=== PATIENT | female | born 1970 | race American Indian/Alaskan Native ===

== ENCOUNTER 2016-11-22 12:50 | Emergency (ER) | payer BC ==
--- NOTE | 2016-11-22 15:15 | Emergency Department Report ---
Chief Complaint: Abdominal Pain Stated Complaint: VAGINAL IRRITATION/ITCHING Time Seen by Provider: 11/22/16 15:07 - HPI History of Present Illness: 46-year-old -[place] female comes in with complaint of lower abdominal pain and vaginal irritation 2-3 days. Denies any vaginal bleeding or vaginal discharge and no painful urination. She does admit to diarrhea she also reports that she has been out of her blood pressure medicine for 1 year. He reports the reason she is been out of her blood pressure medicine is that she has not been able to afford it even though she has health insurance. He admits to having real bad headaches she's not sure if his migraines or side effects from not being on blood pressure medication. Has a past medical history of hypertension diabetes and hyporthyroidism. Patient reports that she has not been on medication for quite a while approximately 1 year. Patient reports that last primary care provider she had she was not very pleased with his matters. She is also looking for another primary care provider - Exam Vital Signs: Vital Signs 11/22/16 14:01 Temperature 98.7 F Pulse Rate 82 Respiratory 18 Rate Blood Pressure 200/100 O2 Sat by Pulse 99 Oximetry Physical Exam: Patient's alert and or 23. Cardiovascular S1-S2 regular rate and rhythm respiratory clear to some bilateral abdomen soft. MSE screening note: Focused history and physical exam performed. Due to findings the following was ordered: Appropriate ordered for this patient. She'll be evaluated in the main ER for further evaluation ED Disposition for MSE Condition: Stable Instructions: Abdominal Pain (ED)
[2016-11-22 16:19] LABS: Hematocrit 45.4 % (30.3-42.9); Hemoglobin 14.3 gm/dl (10.1-14.3); Mean Corpuscular HGB Conc 32 % (30-34); Mean Corpuscular Volume 74 fl (79-97); Platelet Count 249 K/mm3 (140-440); Red Blood Count 6.17 M/mm3 (3.65-5.03); Red Cell Distribution Width 14.7 % (13.2-15.2); White Blood Count 4.1 K/mm3 (4.5-11.0)
[2016-11-22 16:37] LABS: Alanine Aminotransferase 16 units/L (7-56); Albumin 4.3 g/dL (3.9-5); Alkaline Phosphatase 200 units/L (35-129); Anion Gap 20 mmol/L; Bilirubin,Total 0.5 mg/dL (0.1-1.2); Blood Urea Nitrogen 8 mg/dL (7-17); Calcium 9.4 mg/dL (8.4-10.2); Carbon Dioxide 25 mmol/L (22-30); Chloride 96.1 mmol/L (98-107); Glucose 250 mg/dL (65-100); Potassium 4.4 mmol/L (3.6-5.0); Sodium 137 mmol/L (137-145); Total Protein 8.4 g/dL (6.3-8.2)
[2016-11-22 16:38] LABS: Mean Corpuscular Hemoglobin 23 pg (28-32)
[2016-11-22 16:48] LABS: Bilirubin,Urine NEG (Negative); Blood,Urine NEG (Negative); Ketones,Urine NEG (Negative); Leukocyte Esterase,Urine NEG (Negative); Nitrite,Urine NEG (Negative); Protein,Urine <15 mg/dL mg/dL (Negative); WBC,Urine < 1.0 /HPF (0.0-6.0)
--- NOTE | 2016-11-22 23:14 | Emergency Department Report ---
HPI - General Chief Complaint: Abdominal Pain Time Seen by Provider: 11/22/16 15:07 - HPI HPI: Patient is a 46-year-old female with a history of hyperthyroidism who presents to ED complaining of vaginal irritation 2-3 days. Patient states she did have some itching in her vaginal area for the past 3 days. Patient denies recent intercourse. Patient denies fever/chills/nausea/vomiting/abdominal pain, vaginal bleeding, discharge, dysuria or diarrhea. ED Past Medical Hx - Past Medical History Previous Medical History?: Yes Hx Hypertension: Yes Hx Diabetes: Yes Additional medical history: anemia. hyperthyroid - Surgical History Past Surgical History?: Yes Additional Surgical History: cyst removal from left side of neck - Social History Smoking Status: Never Smoker Substance Use Type: None - Medications Home Medications: Home Medications Medication Instructions Recorded Confirmed Last Taken Type Metoprolol [Lopressor TAB] 50 mg PO BID #40 tablet 11/22/16 Unknown Rx metFORMIN [Glucophage] 500 mg PO BID #40 tablet 11/22/16 Unknown Rx metroNIDAZOLE [Flagyl] 500 mg PO Q12HR #14 tab 11/23/16 Unknown Rx ED Review of Systems ROS: Stated complaint: VAGINAL IRRITATION/ITCHING Other details as noted in HPI Constitutional: denies: chills, fever Eyes: denies: eye pain, eye discharge, vision change ENT: denies: ear pain, throat pain Respiratory: denies: cough, shortness of breath, SOB with exertion, SOB at rest , wheezing Cardiovascular: denies: chest pain, palpitations Endocrine: no symptoms reported Gastrointestinal: denies: abdominal pain, nausea, vomiting, diarrhea, constipation, melena Genitourinary: denies: urgency, dysuria, frequency, hematuria, discharge Musculoskeletal: denies: back pain, joint swelling, arthralgia Skin: denies: rash, lesions Neurological: denies: headache, weakness, paresthesias Psychiatric: denies: anxiety, depression Hematological/Lymphatic: denies: easy bleeding, easy bruising Physical Exam - Physical Exam Vital Signs: Vital Signs 11/22/16 11/22/16 14:01 22:02 Temperature 98.7 F Pulse Rate 82 89 Respiratory 18 18 Rate Blood Pressure 200/100 Blood Pressure 191/91 [Right] O2 Sat by Pulse 99 Oximetry Physical Exam: GENERAL: Alert and oriented x3, no apparent distress, Normal Gait, atraumatic. HEAD: Head is normocephalic and a-traumatic. EYES: Extra ocular muscles are intact. Pupils are equal, round, and reactive to light and accommodation. EARS: symetrical, atraumatic gross auditory nml bilaterally. NOSE: Nose symetrical, Nontender,Nares appeared normal. MOUTH:Mouth is well hydrated and without lesions. NECK: Supple. Non edematous, No carotid bruits. No lymphadenopathy or thyromegaly. LUNGS: Symetrical with respiration, No wheezing, no rales or crackles, CTAB. HEART: S1, S2 present, regular rate and rhythm without murmur, no rubs, no gallops. ABDOMEN: No organomegaly was noted,Positive bowel sounds, soft, and non- distended. . Nontender to palpation on all Quadrants, NO CVA tenderness. GENITOURINARY: External genitalia without erythema, exudate or discharge. Vaginal vault is with mild white non odourous discharge. Cervix is of normal color without lesion. Cervical os is closed. Grade 2 prolapse. No bleeding noted. Uterus is noted to be of normal size and nontender. No cervical motion tenderness. No masses are palpated. The adnexa are without masses or tenderness. EXTREMITIES/MUSCULOSKELETAL: No cyanosis, clubbing, rash, lesions or edema. Full ROM bilaterally. UE/LE Pulses 2+ bilaterally. LE and UE 5+ strength bilaterally NEUROLOGIC: No focal Deficit, Cranial nerves II through XII are grossly intact. No loss of sensation, No facial droop, Negative rhomberg. PSYCHIATRIC: Mood is congruent with affect, denies suicidal or homicidal ideations. SKIN: Warm and dry, No lesions, No ulceration or induration present. ED Course Vital Signs 11/22/16 11/22/16 14:01 22:02 Temperature 98.7 F Pulse Rate 82 89 Respiratory 18 18 Rate Blood Pressure 200/100 Blood Pressure 191/91 [Right] O2 Sat by Pulse 99 Oximetry ED Medical Decision Making - Lab Data Result diagrams: 11/22/16 15:56 11/22/16 15:56 - Medical Decision Making 46-year-old female presents with bacterial vaginosis and medication refill ED course: Patient states she does not recall medications she is to take for blood pressure. Patient states she is currently trying to find a primary care physician. Patient states she has an bundles hanger. Patient is noncompliant with her medication as she has no medication and has not followed up. Referral was given for primary care physician. CBC, CMP, urinalysis is ordered. CBC shows mild leukopeia, CMP shows hyperglycemia, elevated alkaline phosphatase. Elevated protein. Otherwise normal. UA is negative. Wet prep positive for greater than 20% cells., No yeast no trichomoniasis. Discussed results with patient's. Patient states she has not been on her metformin for about a while now. Discussed the patient take medication as prescribed. Blood pressure reduced over ED stay.. Better signs stable. Patient is in no acute respiratory distress. Discussed the patient and make sure she follows up with the primary care physician to follow up Critical care attestation.: If time is entered above; I have spent that time in minutes in the direct care of this critically ill patient, excluding procedure time. ED Disposition Clinical Impression: Bacterial vaginosis, Medication refill Hyperglycemia due to type 2 diabetes mellitus Qualifiers: Diabetes mellitus snf insulin use: without snf use Qualified Code(s ): E11.65 - Type 2 diabetes mellitus with hyperglycemia Disposition: DISCHARGED TO HOME OR SELFCARE Is pt being admited?: No Does the pt Need Aspirin: No Condition: Stable Instructions: Bacterial Vaginosis (ED), Diabetes Mellitus Type 2 in Adults (ED) Additional Instructions: Follow-up with primary care physician as discussed follow up with bundles hanger Prescriptions: metFORMIN [Glucophage] 500 mg PO BID #40 tablet Metoprolol [Lopressor TAB] 50 mg PO BID #40 tablet metroNIDAZOLE [Flagyl] 500 mg PO Q12HR #14 tab Referrals: PRIMARY CARE, [Primary Care Provider] - 3-5 Days VADIM PICHARDO MD [Referring] - 3-5 Days WILLY REYEZ MD [Referring] - 3-5 Days CODIE 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 [Outside] - 3-5 Days [facility] - 3[facility]5 Days [facility] [Outside] - 3-5 Days [facility] [Outside] - 3-5 Days [facility] [Outside] - 3-5 Days Forms: Work/School Release Form(ED), STI Treatment and Prevention Time of Disposition: 00:10
[2016-11-22] MEDS ORDERED: CATAPRES PO ONE (23:54)
[2016-11-23 00:07] VITALS: BP 158/67
== END 2016-11-23 00:40 | disposition home or self-care (01) ==
LOC: ED 12:50
DX: N76.0 Acute vaginitis (principal); E11.65 Type 2 diabetes mellitus with hyperglycemia; I10 Essential (primary) hypertension; E05.90 Thyrotoxicosis, unspecified without thyrotoxic crisis or storm
CPT/HCPCS: 36415; 80053; 81001; 82962; 84443; 85027; 87210; 87591; 99284

== ENCOUNTER 2019-06-04 10:12 | Inpatient (IN) | payer BC ==
[2019-06-04 10:55] LABS: Basophils % (Auto) 0.7 % (0.0-1.8); Eosinophils % (Auto) 1.5 % (0.0-4.3); Hematocrit 44.4 % (30.3-42.9); Hemoglobin 14.4 gm/dl (10.1-14.3); Lymphocytes # (Auto) 2.4 K/mm3 (1.2-5.4); Lymphocytes % (Auto) 36.4 % (13.4-35.0); Mean Corpuscular HGB Conc 32 % (30-34); Mean Corpuscular Volume 79 fl (79-97); Mean Platelet Volume 9 fl (6-12); Monocytes # (Auto) 0.5 K/mm3 (0.0-0.8); Monocytes % (Auto) 7.7 % (0.0-7.3); Platelet Count 255 K/mm3 (140-440); Red Blood Count 5.59 M/mm3 (3.65-5.03); Red Cell Distribution Width 12.5 % (13.2-15.2)
[2019-06-04 10:56] LABS: Eosinophils # (Auto) 0.1 K/mm3 (0.0-0.4)
[2019-06-04 11:03] LABS: INR 0.99 (0.87-1.13)
[2019-06-04 11:05] LABS: Partial Thromboplastin Time 31.4 Sec. (24.2-36.6); Thrombin Time 16.6 Sec. (15.1-19.6)
[2019-06-04 11:06] LABS: Creatine Kinase MB < 1.0 ng/mL (0.0-4.0)
[2019-06-04] MEDS ORDERED: NORMODYNE IV ONE (12:07)
--- NOTE | 2019-06-04 12:17 | Emergency Department Report ---
ED Neuro Deficit HPI - General Chief Complaint: Neuro Symptoms/Deficit Stated Complaint: POSS STROKE Time Seen by Provider: 06/04/19 12:06 Source: patient Mode of arrival: Ambulatory Limitations: No Limitations - History of Present Illness Initial Comments: Mrs. Drew is a 48-year-old female with history of hypertension, diabetes mellitus and anemia, hypothyroidism who presents with difficulty with speech, right arm weakness and gait instability. Onset of symptoms at 9 AM while she was at work. 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 She explained that she had trouble speaking to a kind with home. She also felt as if it was a disconnect with her receiving the words. She does explain that her mind seem to be in the distant place while the client was speaking over the phone. Her tongue was heavy. Her tongue head deviated to the side. She was unable to operate the pain in her right hand. Mild arm felt heavy. She felt unsteady when she walks. Symptoms have since improved. She denies headache. Denies chest pain. Denies abdominal pain. She has a history of medication noncompliance. She does not see a primary care physician. She admits to depression without suicidal ideation. Her 4 years ago. She is a . Her had 2 strokes prior to his . Mrs. Drew also reports that she had a similar strokelike occurrence 4 years ago. She did not seek medical care because she was taking care of her sick . -: Sudden, This morning Location: speech, dysarthria, right arm Presenting Symptoms: Present: Weak/Paralyzed One Side, Unable to Speak Clearly Place: work Severity: severe Quality: weak, numb, improving Improves With: time On Anticoagulants: No Context: sudden onset Associated Symptoms: denies other symptoms Treatments Prior to Arrival: none - Related Data Home Medications: Previous Rx's Medication Instructions Recorded Last Taken Type Metoprolol [Lopressor TAB] 50 mg PO BID #40 tablet 11/22/16 Unknown Rx metFORMIN [Glucophage] 500 mg PO BID #40 tablet 11/22/16 Unknown Rx metroNIDAZOLE [Flagyl] 500 mg PO Q12HR #14 tab 11/23/16 Unknown Rx Allergies/Adverse Reactions: Allergies Allergy/AdvReac Type Severity Reaction Status Date / Time No Known Allergies Allergy Verified 06/04/19 10:24 ED Review of Systems ROS: Stated complaint: POSS STROKE Other details as noted in HPI Comment: All other systems reviewed and negative Constitutional: denies: chills, fever ENT: denies: ear pain, throat pain Respiratory: denies: cough, shortness of breath, wheezing Cardiovascular: denies: chest pain Endocrine: no symptoms reported Gastrointestinal: denies: abdominal pain, nausea, diarrhea Genitourinary: denies: urgency, dysuria, discharge Musculoskeletal: denies: joint swelling, arthralgia Skin: denies: rash, lesions Neurological: weakness, numbness, paresthesias, abnormal gait. denies: headache Psychiatric: denies: depression, suicidal thoughts Hematological/Lymphatic: denies: easy bleeding, easy bruising ED Past Medical Hx - Past Medical History Previous Medical History?: Yes Hx Hypertension: Yes Hx Diabetes: Yes Additional medical history: anemia. hyperthyroid - Surgical History Past Surgical History?: Yes Additional Surgical History: cyst removal from left side of neck - Social History Smoking Status: Never Smoker Substance Use Type: Alcohol Other Social History: Works at a [employer] center for [employer], - Medications Home Medications: Home Medications Medication Instructions Recorded Confirmed Last Taken Type Metoprolol [Lopressor TAB] 50 mg PO BID #40 tablet 11/22/16 Unknown Rx metFORMIN [Glucophage] 500 mg PO BID #40 tablet 11/22/16 Unknown Rx metroNIDAZOLE [Flagyl] 500 mg PO Q12HR #14 tab 11/23/16 Unknown Rx ED Neuro Physical Exam - General Limitations: No Limitations General appearance: alert, in no apparent distress Suspected Stroke: Yes - Head Head exam: Present: atraumatic, normocephalic, other (right eyelid has limited movement (hx of ptosis surgery as a child), bilateral proptosis) - Eye Eye exam: Present: normal appearance - ENT ENT exam: Present: mucous membranes moist - Neck Neck exam: Present: normal inspection, full ROM - Respiratory Respiratory exam: Present: normal lung sounds bilaterally. Absent: respiratory distress, wheezes, rales, rhonchi - Cardiovascular Cardiovascular Exam: Present: regular rate, normal rhythm, normal heart sounds. Absent: systolic murmur, diastolic murmur, rubs, gallop - GI/Abdominal GI/Abdominal exam: Present: soft, normal bowel sounds. Absent: distended, tenderness, guarding, rebound - Extremities Exam Extremities exam: Present: normal inspection - Back Exam Back exam: Present: normal inspection - Neurological Exam Neurological exam: Present: alert, oriented X3 - NIHSS Assessment Interval: Baseline 1a. Level of Consciousness: alert/keenly responsive 1b. LOC Questions: answers both correctly 1c. LOC Commands: performs tasks correctly 2. Best Gaze: normal 3. Visual: no visual loss 4. Facial Palsy: normal symmetrical movement 5b. Motor Arm Right: no drift 5a. Motor Arm Left: no drift 6a. Motor Leg Left: no drift 6b. Motor Leg Right: no drift 7. Limb Ataxia: absent 8. Sensory: normal 9. Best Language: no aphasia 10. Dysarthria: normal 11. Extinction/Inattention: no abnormality Total Score: 0 Stroke Severity: No Stroke Symptoms - Psychiatric Psychiatric exam: Present: normal affect, normal mood - Skin Skin exam: Present: warm, dry, intact, normal color. Absent: rash ED Course Vital Signs 06/04/19 06/04/19 06/04/19 10:22 12:03 12:04 Temperature 98.1 F Pulse Rate 107 H 77 Respiratory 16 16 16 Rate Blood Pressure 252/137 Blood Pressure 216/112 [Left] O2 Sat by Pulse 99 100 Oximetry 06/04/19 06/04/19 06/04/19 12:18 12:36 13:03 Temperature Pulse Rate 67 75 71 Respiratory 16 14 Rate Blood Pressure 217/100 Blood Pressure 193/103 174/93 [Left] O2 Sat by Pulse 100 Oximetry 06/04/19 13:25 Temperature Pulse Rate 67 Respiratory 16 Rate Blood Pressure Blood Pressure 189/90 [Left] O2 Sat by Pulse 100 Oximetry - Lab Data Result diagrams: 06/04/19 10:33 Lab Results 06/04/19 06/04/19 06/04/19 Range/Units 10:31 10:33 10:33 WBC 6.7 (4.5-11.0) K/mm3 RBC 5.59 H (3.65-5.03) M/mm3 Hgb 14.4 H (10.1-14.3) gm/dl Hct 44.4 H (30.3-42.9) % MCV 79 (79-97) fl MCH 26 L (28-32) pg MCHC 32 (30-34) % RDW 12.5 L (13.2-15.2) % Plt Count 255 (140-440) K/mm3 Lymph % (Auto) 36.4 H (13.4-35.0) % [place] % (Auto) 7.7 H (0.0-7.3) % Eos % (Auto) 1.5 (0.0-4.3) % Baso % (Auto) 0.7 (0.0-1.8) % Lymph # 2.4 (1.2-5.4) K/mm3 [place] # 0.5 (0.0-0.8) K/mm3 Eos # 0.1 (0.0-0.4) K/mm3 Baso # 0.0 (0.0-0.1) K/mm3 Add Manual Diff Complete Seg Neutrophils % 53.7 (40.0-70.0) % Seg Neutrophils # 3.6 (1.8-7.7) K/mm3 PT 12.8 (12.2-14.9) Sec. INR 0.99 (0.87-1.13) APTT 31.4 (24.2-36.6) Sec. Thrombin Time 16.6 (15.1-19.6) Sec. POC Glucose 465 H (70-105) Total Creatine Kinase (30-135) units/L CK-MB (CK-2) (0.0-4.0) ng/mL CK-MB (CK-2) Rel Index (0-4) Troponin T (0.00-0.029) ng/mL 06/04/19 Range/Units 10:33 WBC (4.5-11.0) K/mm3 RBC (3.65-5.03) M/mm3 Hgb (10.1-14.3) gm/dl Hct (30.3-42.9) % MCV (79-97) fl MCH (28-32) pg MCHC (30-34) % RDW (13.2-15.2) % Plt Count (140-440) K/mm3 Lymph % (Auto) (13.4-35.0) % [place] % (Auto) (0.0-7.3) % Eos % (Auto) (0.0-4.3) % Baso % (Auto) (0.0-1.8) % Lymph # (1.2-5.4) K/mm3 [place] # (0.0-0.8) K/mm3 Eos # (0.0-0.4) K/mm3 Baso # (0.0-0.1) K/mm3 Add Manual Diff Seg Neutrophils % (40.0-70.0) % Seg Neutrophils # (1.8-7.7) K/mm3 PT (12.2-14.9) Sec. INR (0.87-1.13) APTT (24.2-36.6) Sec. Thrombin Time (15.1-19.6) Sec. POC Glucose (70-105) Total Creatine Kinase 22 L (30-135) units/L CK-MB (CK-2) < 1.0 (0.0-4.0) ng/mL CK-MB (CK-2) Rel Index 4.5 H (0-4) Troponin T < 0.010 (0.00-0.029) ng/mL - EKG Data -: EKG Interpreted by Me EKG shows normal: sinus rhythm, axis, intervals, QRS complexes, ST-T waves Rate: normal Interpretation: no acute changes, normal EKG 06/04/19 12:18 Rate 70 beats a minute NSR nl rate nl axis nl intervals no ST-T signs of ischemia no ST elevation obtained 10:30 - Radiology Data Radiology results: report reviewed, image reviewed CT head: Moderate to large area of encephalomalacia in the right MCA distribution consistent with chronic infarct, no acute intracranial findings - Medical Decision Making Mrs. Drew presents with signs of TIA. She reports dysarthria, aphasia receptive and expressive, right arm weakness, gait instability. According to CT she has had previous neurological insult. Blood pressure managed with IV labetalol. Aspirin provided. NIH stroke scale score 0. Aspirin provided. TPA is not indicated since symptoms are completely resolved. Admitted to the hospital service. Critical Care Time: Yes Critical care time in (mins) excluding proc time.: 40 Critical care attestation.: If time is entered above; I have spent that time in minutes in the direct care of this critically ill patient, excluding procedure time. 40 minutes of critical care time excluding procedures were used in the care of the patient. Patient required multiple assessments and interventions. I reviewed the electronic medical record. I spoke with consultants involved in the care of the patient. I came to the bedside immediately upon patient's arrival to treatment room. I was concerned for acute CVA and hypertensive emerg ency. Wanted to rule out intracranial hemorrhage as soon as possible. She required careful blood pressure control. ED Disposition Clinical Impression: Acute CVA (cerebrovascular accident), Hypertensive urgency, malignant Disposition: [id number] OP ADMIT IP TO THIS HOSP Is pt being admited?: Yes Does the pt Need Aspirin: Yes Condition: Stable
--- NOTE | 2019-06-04 13:39 | Cat Scan Report ---
CT HEAD WITHOUT CONTRAST INDICATION : Transient ischemic attack. TECHNIQUE: Axial imaging performed from the skull apex through the skull base without the use of con trast. Sagittal and coronal reformatted images. All CT scans at this location are performed using C T dose reduction for ALARA by means of automated exposure control. COMPARISON: None FINDINGS: Parenchyma: A moderate to large area of encephalomalacia is identified throughout the right MCA dist ribution consistent with chronic infarct. The infarct measures up to 8.0 x 4.0 cm in axial plane. The remaining brain parenchyma demonstrates normal attenuation. No evidence for hemorrhage, mass, extra- axial fluid collection or large area of acute ischemia. Ventricles: Ventricles are normal in size and appear symmetric. Bones: No acute osseous abnormality. Sinuses: Sinuses and mastoid air cells are clear. Soft tissues: Soft tissues including the orbits appear normal. IMPRESSION: Chronic right MCA infarct. No acute intracranial findings. Signer Name: Haresh Mackenzie Jr, MD Signed: 06/04/2019 1:35 PM Workstation Name: [id number]
[2019-06-04] MEDS ORDERED: BABY ASPIRIN PO ONE (14:00)
--- NOTE | 2019-06-04 14:00 | XRay Report ---
CHEST 1 VIEW INDICATION: dyspnea. COMPARISON: None. FINDINGS: Support devices: None. Heart: Within normal limits. Pulmonary vasculature: Normal. Lungs/Pleura: No acute air space or interstitial disease. Additional findings: None. IMPRESSION: 1. No acute findings. Signer Name: Jaya Nelson MD Signed: 06/04/2019 1:56 PM Workstation Name: [id number]
--- NOTE | 2019-06-04 15:09 | History and Physical Report ---
History of Present Illness Chief complaint: I could not talk History of present illness: 48 YO Female with HTN, DM, Anemia, Hypothyroidism, Depression presents to ED for evaluation. Pt states that she was in her usual stat of health and experienced a sudden onset of difficulty speaking, right arm and leg weakness while at work. Pt states that symptoms began around 0900hrs. Pt transported to [facility] via private vehicle. Pt seen and evaluated in ED and found to have symptoms consistent with CVA as well as Malignant Hypertension. Pt initiated on CVA protocol, and admitted to telemetry. Neurology consulted in ED. Pt denies fever, chills, CP, Palpitations, NVD, Trauma, Syncope, Productive cough, skin rash, unintentional weight loss, night sweats, or recent ill contacts. No prior admission for review. All medication listed at time of admission has been reconciled. Past History Past Medical History: anemia, diabetes, hypertension, hypothyroidism, other (Depression) Past Surgical History: Other (Left neck Cyst removal) Social history: . denies: smoking, alcohol abuse, prescription drug abuse Family history: diabetes, hypertension Medications and Allergies Allergies Allergy/AdvReac Type Severity Reaction Status Date / Time No Known Allergies Allergy Verified 06/04/19 10:24 Home Medications Medication Instructions Recorded Confirmed Last Taken Type Metoprolol [Lopressor TAB] 50 mg PO BID #40 tablet 11/22/16 Unknown Rx metFORMIN [Glucophage] 500 mg PO BID #40 tablet 11/22/16 Unknown Rx metroNIDAZOLE [Flagyl] 500 mg PO Q12HR #14 tab 11/23/16 Unknown Rx Review of Systems Constitutional: no weight loss, no weight gain, no fever, no chills Ears, nose, mouth and throat: no ear pain, no ear discharge, no tinnitis, no decreased hearing, no nose pain, no nasal congestion Breasts: no change in shape, no swelling, no mass Cardiovascular: no chest pain, no orthopnea, no palpitations, no edema, no syncope Respiratory: no cough, no cough with sputum, no excessive sputum, no hemoptysis, no shortness of breath Gastrointestinal: no abdominal pain, no nausea, no vomiting, no diarrhea, no constipation Genitourinary Female: no pelvic pain, no flank pain, no menorrhagia, no dysuria, no urinary frequency, no urgency Musculoskeletal: no neck stiffness, no neck pain, no shooting arm pain, no arm numbness/tingling, no low back pain, no shooting leg pain Integumentary: no rash, no pruritis, no redness, no sores, no jaundice Neurological: weakness, ataxia, change in speech, gait dysfunction, motor disturbance, no head injury, no vertigo, no headaches, no migraines, no tic, no double vision, no loss of vision, no hearing difficulties Psychiatric: no anxiety, no memory loss, no change in sleep habits, no sleep disturbances, no insomnia, no hypersomnia, no suicidal ideation Endocrine: no cold intolerance, no heat intolerance, no polyphagia, no excessive thirst, no polydipsia, no polyuria, no nocturia Hematologic/Lymphatic: no easy bruising, no easy bleeding, no lymphadenopathy, no lymphedema Allergic/Immunologic: no allergic rhinitis, no wheezing, no persistent infections, no anaphylaxis Exam - Constitutional Vitals: Temp Pulse Resp BP Pulse Ox 98.1 F 67 12 183/88 99 06/04/19 10:22 06/04/19 14:46 06/04/19 14:46 06/04/19 14:46 06/04/19 14:46 General appearance: Present: no acute distress, well-nourished - EENT Eyes: Present: PERRL ENT: hearing intact, clear oral mucosa - Neck Neck: Present: supple, normal ROM - Respiratory Respiratory effort: normal Respiratory: bilateral: CTA - Cardiovascular Heart Sounds: Present: S1 & S2. Absent: rub, click - Extremities Extremities: pulses symmetrical, No edema Peripheral Pulses: within normal limits - Abdominal General gastrointestinal: Present: soft, non-tender, non-distended, normal bowel sounds Female genitourinary: Present: normal - Integumentary Integumentary: Present: clear, warm, dry - Musculoskeletal Musculoskeletal: gait normal, strength equal bilaterally - Psychiatric Psychiatric: appropriate mood/affect, intact judgment & insight - Neurologic Neurologic: CNII-XII intact, moves all extremities Results - Labs CBC & Chem 7: 06/04/19 10:33 Labs: Abnormal lab results 06/04/19 06/04/19 06/04/19 Range/Units 10:31 10:33 10:33 RBC 5.59 H (3.65-5.03) M/mm3 Hgb 14.4 H (10.1-14.3) gm/dl Hct 44.4 H (30.3-42.9) % MCH 26 L (28-32) pg RDW 12.5 L (13.2-15.2) % Lymph % (Auto) 36.4 H (13.4-35.0) % [place] % (Auto) 7.7 H (0.0-7.3) % POC Glucose 465 H (70-105) Total Creatine Kinase 22 L (30-135) units/L CK-MB (CK-2) Rel Index 4.5 H (0-4) Assessment and Plan - Patient Problems (1) CVA (cerebral vascular accident) Current Visit: Yes Status: Acute Qualifiers: Precerebral and cerebral artery: middle cerebral artery Laterality of affected vessel: left Plan to address problem: CVA Protocol: CT Head, PT/OT/Speech therapy, antiplatelet therapy, swallow screen, carotid doppler, EEG, neuro checks, lipid panel, statin therapy (2) Hypertensive urgency, malignant Current Visit: Yes Status: Acute Plan to address problem: IV hydralazine prn, Permissive hypertension, goal systolic overnight 160-180. (3) Diabetes Current Visit: Yes Status: Acute Plan to address problem: ADA diet, insulin, accu check, hypoglycemia protocol (4) Hypothyroidism Current Visit: Yes Status: Acute Qualifiers: Hypothyroidism type: acquired Qualified Code(s): E03.9 - Hypothyroidism, unspecified Plan to address problem: thyroid panel, supportive care (5) Depression Current Visit: Yes Status: Acute Qualifiers: Major depression episode severity: unspecified Plan to address problem: Supportive care, outpatient psychiatry F/U care. (6) DVT prophylaxis Current Visit: Yes Status: Acute Plan to address problem: SCD to BLE while in bed, supportive care, Pt ambulatory
[2019-06-04] MEDS ORDERED: PHENERGAN PR PRN (15:11)
[2019-06-04] MEDS ORDERED: MILK OF MAGNESIA PO PRN (15:11)
[2019-06-04] MEDS ORDERED: TYLENOL PO PRN (15:11)
[2019-06-04] MEDS ORDERED: ZOFRAN IV PRN (15:11)
[2019-06-04] MEDS ORDERED: SODIUM CHLORIDE FLUSH SYRINGE 10 ML IV PRN (15:11)
[2019-06-04] MEDS ORDERED: DULCOLAX PR PRN (15:11)
[2019-06-04] MEDS ORDERED: REGLAN PO PRN (15:11)
--- NOTE | 2019-06-04 17:12 | Vascular Lab Report ---
"DUPLEX DOPPLER ULTRASOUND CAROTID, BILATERAL INDICATION: stroke. FINDINGS: RIGHT CAROTID: No significant atherosclerotic plaque. Right CCA velocity: 80 cm/sec. Right ICA peak systolic velocity: 50 cm/sec. ICA/CCA PSV Ratio: 0.62. Right Vertebral Artery: Antegrade flow. LEFT CAROTID: No significant atherosclerotic plaque. Left CCA velocity: 90 cm/sec. Left ICA peak systolic velocity: 82 cm/sec. ICA/CCA PSV Ratio: 0.91. Left Vertebral Artery: Antegrade flow. IMPRESSION: 1. Right Internal Carotid Artery: Less than 50% diameter stenosis. 2. Left Internal Carotid Artery: Less than 50% diameter stenosis. Velocity criteria are extrapolated from diameter data as defined by the Society of Radiologists in Ul trasound Consensus Conference, Radiology 2003; 229;340-346. Degree of Stenosis (%) || ICA PSV (cm/sec) || Plaque estimate (%) || ICA/CCA PSV Ratio Normal <125 None <2.0 <50 <125 <50 <2.0 50-69 125-230 50 2.0-4.0 70 but less than 100 >230 50 >4.0 Near occlusion High, low, or none visible variable Total occlusion None visible; no lumen N/A Signer Name: Luigi Matos MD Signed: 06/04/2019 5:07 PM Workstation Name: [id number]"
[2019-06-04] MEDS ORDERED: D50W (25GM) Syringe IV PRN (17:15)
--- NOTE | 2019-06-04 17:23 | Progress Note ---
Subjective Date of service: 06/04/19 Interval history: new onset of speech slurring and facial numbness a/w speech problems very interesting hx of previously having facila nerve paralsis at with ptosis surgery no recent ophth eval's this tends to exclude myasthenia gravis as the differential dx plan vascular w/u Objective - Vital Sign Vital Signs - 12hr 06/04/19 06/04/19 06/04/19 10:22 12:03 12:04 Temperature 98.1 F Pulse Rate 107 H 77 Respiratory 16 16 16 Rate Blood Pressure 252/137 Blood Pressure 216/112 [Left] O2 Sat by Pulse 99 100 Oximetry 06/04/19 06/04/19 06/04/19 12:18 12:36 13:03 Temperature Pulse Rate 67 75 71 Respiratory 16 14 Rate Blood Pressure 217/100 Blood Pressure 193/103 174/93 [Left] O2 Sat by Pulse 100 Oximetry 06/04/19 06/04/19 06/04/19 13:25 14:46 16:03 Temperature Pulse Rate 67 67 83 Respiratory 16 12 12 Rate Blood Pressure Blood Pressure 189/90 183/88 198/102 [Left] O2 Sat by Pulse 100 99 100 Oximetry 06/04/19 17:11 Temperature 98.2 F Pulse Rate 75 Respiratory 18 Rate Blood Pressure 224/97 Blood Pressure [Left] O2 Sat by Pulse 100 Oximetry - Laboratory Findings CBC and BMP: 06/04/19 10:33 Abnormal Lab Findings: Abnormal Labs 06/04/19 06/04/19 06/04/19 10:31 10:33 10:33 RBC 5.59 H Hgb 14.4 H Hct 44.4 H MCH 26 L RDW 12.5 L Lymph % (Auto) 36.4 H [place] % (Auto) 7.7 H POC Glucose 465 H Total Creatine Kinase 22 L CK-MB (CK-2) Rel Index 4.5 H
[2019-06-04] MEDS ORDERED: APRESOLINE IV PRN ×2 (17:28→17:33)
[2019-06-04] MEDS ORDERED: APRESOLINE ONE (17:37)
[2019-06-04] MEDS ORDERED: HumaLOG SUB-Q SCH (18:00)
[2019-06-04 20:56] LABS: Free T4 (Free Thyroxine) 1.06 ng/dL (0.76-1.46)
[2019-06-04] MEDS: HumaLOG SUB-Q SCH (22:05)
[2019-06-04] MEDS: LOPRESSOR PO SCH (22:05)
[2019-06-05 06:18] LABS: Chol/HDL Ratio 5.1 %
--- NOTE | 2019-06-05 08:13 | Consultation ---
HISTORY OF PRESENT ILLNESS: This is a 48-year-old black female who presents to the Emergency Room of [facility] as an emergency evaluation. She initially presented on 06/04/2019. The patient presented with history of slurred speech, confusion, difficulty with right-sided numbness. She had previously been evaluated for difficulty with right arm and right leg numbness, onset of symptoms was approximately 9:00 a.m. while she was at work. She presented to the hospital with a history of being on metoprolol, metformin and Flagyl 500 mg b.i.d. She has no known allergies. After presenting to the hospital, her blood pressure was markedly elevated at 252/137. She was felt to be in hypertensive crisis. She was initially assessed and felt to have an acute CVA, hypertensive emergency, malignant hypertension. The patient's condition was further stabilized with a blood pressure being reduced and I did review over her CT of the head, which showed evidence of an old infarct in the right frontal lobe with hemisphere with adjacent white matter changes and compensatory dilation of the right frontal horn of the ventricular system compatible with a very large old ischemic infarct of the right hemisphere, age of which is undetermined. This is apparently led to a branch occlusion of the right middle cerebral artery. 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 She underwent surgery for this. The eye was opened with sutures and she was at that point able to see, but is continued to have bifrontal facial weakness in the upper half of the face. PHYSICAL EXAMINATION: VITAL SIGNS: The patient's blood pressure to be 174/93, pulse rate 71, respirations 14, temperature is 98.2 degrees, PaO2 on room air 100%. NEUROLOGIC: Cranial nerves 2-12, she has a bifrontal facial weakness. She has ptosis of the right and left eye, left greater than right. She has had surgery on the right eye. Examination at this point shows she has no drift to extremities. Full visual iqbal. No tremors or asterixis. No medical record technician strength abnormalities present. Reflexes are 1+ and symmetrical. Sensory examination unremarkable. IMPRESSION AND PLAN: Acute stroke of the left hemisphere. She has had a very large right hemisphere stroke in the past. First onset of right-sided symptoms including speech, arm numbness and tingling as well as weakness. I suspect a left MCA territory problem and right hypertensive crisis. She is clearly not a candidate for TPA. We would recommend further assessment workup at this point. JOB# [id number] MOIRA/MESSI
[2019-06-05] MEDS: HumaLOG SUB-Q SCH ×4 (08:27→22:23)
[2019-06-05] MEDS: LOPRESSOR PO SCH ×2 (10:07→22:23)
--- NOTE | 2019-06-05 12:14 | Progress Note ---
Subjective Date of service: 06/05/19 Interval history: carotid u/s is negative for occlusive disease await the MRI the ptosis observation is very old problem Objective - Vital Sign Vital Signs - 12hr 06/05/19 06/05/19 06/05/19 04:26 08:00 10:07 Temperature 98.0 F 97.8 F Pulse Rate 68 67 67 Respiratory 20 18 Rate Blood Pressure 171/80 159/79 Blood Pressure 159/79 [Left] O2 Sat by Pulse 99 100 Oximetry 06/05/19 11:34 Temperature 98.3 F Pulse Rate 61 Respiratory 18 Rate Blood Pressure 159/77 Blood Pressure [Left] O2 Sat by Pulse 92 Oximetry - Laboratory Findings CBC and BMP: 06/04/19 10:33 Abnormal Lab Findings: Abnormal Labs 06/04/19 06/04/19 06/04/19 10:31 10:33 10:33 RBC 5.59 H Hgb 14.4 H Hct 44.4 H MCH 26 L RDW 12.5 L Lymph % (Auto) 36.4 H [place] % (Auto) 7.7 H POC Glucose 465 H Total Creatine Kinase 22 L CK-MB (CK-2) Rel Index 4.5 H LDL Cholesterol Direct HDL Cholesterol 06/04/19 06/04/19 06/05/19 19:08 20:58 04:29 RBC Hgb Hct MCH RDW Lymph % (Auto) [place] % (Auto) POC Glucose 455 H 386 H Total Creatine Kinase CK-MB (CK-2) Rel Index LDL Cholesterol Direct 167 H HDL Cholesterol 39 L 06/05/19 06/05/19 08:16 11:41 RBC Hgb Hct MCH RDW Lymph % (Auto) [place] % (Auto) POC Glucose 257 H 253 H Total Creatine Kinase CK-MB (CK-2) Rel Index LDL Cholesterol Direct HDL Cholesterol
--- NOTE | 2019-06-05 15:04 | Progress Note ---
Assessment and Plan Assessment and plan: CVA (cerebral vascular accident) CVA Protocol: CT Head, PT/OT/Speech therapy, antiplatelet therapy, swallow screen, carotid doppler, EEG, neuro checks, lipid panel, statin therapy Hypertensive urgency, malignant IV hydralazine prn, Permissive hypertension, goal systolic overnight 160-180. Diabetes ADA diet, insulin, accu check, hypoglycemia protocol Hypothyroidism thyroid panel, supportive care Depression Supportive care, outpatient psychiatry F/U care. DVT prophylaxis SCD to BLE while in bed, supportive care, Pt ambulatory History Interval history: No new issues Hospitalist Physical - Constitutional Vitals: Temp Pulse Resp BP Pulse Ox 98.3 F 61 18 159/77 92 06/05/19 11:34 06/05/19 11:34 06/05/19 11:34 06/05/19 11:34 06/05/19 11:34 General appearance: Present: no acute distress, well-nourished - EENT Eyes: Present: PERRL, EOM intact ENT: hearing intact, clear oral mucosa, dentition normal - Neck Neck: Present: supple, normal ROM - Respiratory Respiratory effort: normal Respiratory: bilateral: CTA - Cardiovascular Rhythm: regular Heart Sounds: Present: S1 & S2. Absent: gallop, rub - Extremities Extremities: no ischemia, No edema, Full ROM - Abdominal General gastrointestinal: soft, non-tender, non-distended, normal bowel sounds - Integumentary Integumentary: Present: clear, warm, dry - Neurologic Neurologic: CNII-XII intact, moves all extremities Results - Labs CBC & Chem 7: 06/04/19 10:33 Labs: Laboratory Last Values WBC 6.7 K/mm3 (4.5-11.0) 06/04/19 10:33 RBC 5.59 M/mm3 (3.65-5.03) H 06/04/19 10:33 Hgb 14.4 gm/dl (10.1-14.3) H 06/04/19 10:33 Hct 44.4 % (30.3-42.9) H 06/04/19 10:33 MCV 79 fl (79-97) 06/04/19 10:33 MCH 26 pg (28-32) L 06/04/19 10:33 MCHC 32 % (30-34) 06/04/19 10:33 RDW 12.5 % (13.2-15.2) L 06/04/19 10:33 Plt Count 255 K/mm3 (140-440) 06/04/19 10:33 Lymph % (Auto) 36.4 % (13.4-35.0) H 06/04/19 10:33 [place] % (Auto) 7.7 % (0.0-7.3) H 06/04/19 10:33 Eos % (Auto) 1.5 % (0.0-4.3) 06/04/19 10:33 Baso % (Auto) 0.7 % (0.0-1.8) 06/04/19 10:33 Lymph # 2.4 K/mm3 (1.2-5.4) 06/04/19 10:33 [place] # 0.5 K/mm3 (0.0-0.8) 06/04/19 10:33 Eos # 0.1 K/mm3 (0.0-0.4) 06/04/19 10:33 Baso # 0.0 K/mm3 (0.0-0.1) 06/04/19 10:33 Add Manual Diff Complete 06/04/19 10:33 Seg Neutrophils % 53.7 % (40.0-70.0) 06/04/19 10:33 Seg Neutrophils # 3.6 K/mm3 (1.8-7.7) 06/04/19 10:33 PT 12.8 Sec. (12.2-14.9) 06/04/19 10:33 INR 0.99 (0.87-1.13) 06/04/19 10:33 APTT 31.4 Sec. (24.2-36.6) 06/04/19 10:33 16.6 Sec. (15.1-19.6) 06/04/19 10:33 POC Glucose 253 (70-105) H 06/05/19 11:41 22 units/L (30-135) L 06/04/19 10:33 CK-MB (CK-2) < 1.0 ng/mL (0.0-4.0) 06/04/19 10:33 CK-MB (CK-2) Rel Index 4.5 (0-4) H 06/04/19 10:33 < 0.010 ng/mL (0.00-0.029) 06/04/19 10:33 Triglycerides 100 mg/dL (2-149) 06/05/19 04:29 Cholesterol 199 mg/dL (50-199) 06/05/19 04:29 167 mg/dL (50-130) H 06/05/19 04:29 39 mg/dL (40-59) L 06/05/19 04:29 5.10 % 06/05/19 04:29 TSH 0.866 mlU/mL (0.270-4.200) 06/04/19 19:12 Free T4 1.06 ng/dL (0.76-1.46) 06/04/19 19:12 Active Medications - Current Medications Current Medications: Generic Name Dose Route Start Last Admin Trade Name Freq PRN Reason Stop Dose Admin Acetaminophen 650 mg 06/04/19 15:11 Tylenol PO Q4H PRN Pain, Mild (1-3) Atorvastatin Calcium 40 mg 06/04/19 22:00 06/04/19 22:05 Lipitor PO 40 mg QHS LAZARA Administration Bisacodyl 10 mg 06/04/19 15:11 Dulcolax VT QDAY PRN Constipation Dextrose 50 ml 06/04/19 17:15 D50w (25gm) Syringe IV PRN PRN Hypoglycemia Hydralazine HCl 10 mg 06/04/19 17:33 06/04/19 17:53 Apresoline IV 10 mg ONCE PRN Administration HTN SBP>200 Insulin Human Lispro 0 unit 06/04/19 22:00 06/05/19 12:48 Humalog SUB-Q 6 unit QACHS LAZARA Administration Protocol Magnesium Hydroxide 30 ml 06/04/19 15:11 Milk Of Magnesia PO Q4H PRN Constipation Metoclopramide HCl 10 mg 06/04/19 15:11 Reglan PO Q6H PRN Nausea And Vomiting Metoprolol Tartrate 50 mg 06/04/19 22:00 06/05/19 10:07 Lopressor PO 50 mg BID LAZARA Administration Ondansetron HCl 4 mg 06/04/19 15:11 Zofran IV Q8H PRN Nausea And Vomiting Promethazine HCl 25 mg 06/04/19 15:11 Phenergan VT Q6H PRN Nausea And Vomiting Sodium Chloride 10 ml 06/04/19 15:11 Sodium Chloride Flush Syringe 10 Ml IV PRN PRN LINE FLUSH
--- NOTE | 2019-06-06 07:35 | Discharge Summary ---
Providers - Providers Date of Admission: 06/04/19 15:11 Date of discharge: 06/06/19 Attending physician: CHEL GARCIA 06/04/19 Consult to Physician [CONS] Routine Comment: Consulting Provider: JACQUELYN RAMOS Physician Instructions: Reason For Exam: cva 06/04/19 15:11 Occupational Therapy Evaluate and Treat [CONS] Routine Comment: Reason For Exam: Neuro deficits Physical Therapy Evaluation and Treat [CONS] Routine Comment: Reason For Exam: Neuro deficits 06/04/19 15:12 Speech Therapy Evaluation and Treat [CONS] Routine Reason For Exam: swallow eval [facility] Reason for admission: cvc/tia Condition: Stable Hospital course: 48 YO Female with HTN, DM, Anemia, Hypothyroidism, Depression who was in her usual state of health presented to the ED with a sudden onset of difficulty speaking, right arm and leg weakness while at work. Pt stated that symptoms began around 0900hrs [employer]. Pt transported to [facility] via private vehicle. Pt seen and evaluated in ED and found to have symptoms consistent with CVA as well as Malignant Hypertension. Pt initiated on CVA protocol, and admitted to telemetry. Neurology consulted in ED. Pt denied fever, chills, CP, Palpitations, NVD, Trauma, Syncope, Productive cough, skin rash, unintentional weight loss, night sweats, or recent ill contacts. CT scan of the head revealed chronic right MCA infarct. Carotid Dopplers revealed less than 50% stenosis bilaterally. Echocardiogram was completed and will be followed up as an outpatient. Neurology will perform MRI as an outpatient if unable to complete today. The patient's symptoms resolved and she is back to her baseline. The pt will receive secondary prevention treatment with ASA and statin. D/C time 32 minutes Disposition: DC-01 TO HOME OR SELFCARE Time spent for discharge: 32 - Discharge Diagnoses (1) CVA (cerebral vascular accident) Status: Acute Qualifiers: Precerebral and cerebral artery: middle cerebral artery Laterality of affected vessel: left (2) Diabetes Status: Acute (3) Hypertensive urgency, malignant Status: Acute (4) Hypothyroidism Status: Acute Qualifiers: Hypothyroidism type: acquired Qualified Code(s): E03.9 - Hypothyroidism, unspecified (5) TIA (transient ischemic attack) Status: Acute Core Measure Documentation - Palliative Care Palliative Care/ Comfort Measures: Not Applicable - Core Measures Any of the following diagnoses?: stroke, none - Stroke Discharge Requirements Statin for LDL = or >70 mg/dl on DC: Yes Anticoag for atrial fib/atrial flutter: Not Applicable Antithrombotic for ischemic stroke: Yes Exam - Constitutional Vitals: Temp Pulse Resp BP Pulse Ox 98.3 F 59 L 18 168/78 98 06/06/19 05:35 06/06/19 05:34 06/06/19 05:34 06/06/19 05:34 06/06/19 05:34 General appearance: Present: no acute distress, well-nourished - EENT Eyes: Present: PERRL ENT: hearing intact, clear oral mucosa - Neck Neck: Present: supple, normal ROM - Respiratory Respiratory effort: normal Respiratory: bilateral: CTA - Cardiovascular Heart Sounds: Present: S1 & S2. Absent: rub, click - Extremities Extremities: pulses symmetrical, No edema Peripheral Pulses: within normal limits - Abdominal General gastrointestinal: Present: soft, non-tender, non-distended, normal bowel sounds Female genitourinary: Present: normal - Integumentary Integumentary: Present: clear, warm, dry - Musculoskeletal Musculoskeletal: gait normal, strength equal bilaterally - Psychiatric Psychiatric: appropriate mood/affect, intact judgment & insight - Neurologic Neurologic: CNII-XII intact, moves all extremities Plan Activity: no restrictions Weight Bearing Status: Weight Bear as Tolerated Diet: low fat, low cholesterol, low salt, diabetic [facility] Care Provider[facility] - 3-5 Days JACQUELYN RAMOS MD [Staff Physician] - 7 Days Prescriptions: Aspirin EC 325 mg PO QDAY #30 tablet. metFORMIN [Glucophage] 500 mg PO BID #40 tablet AtorvaSTATin [Lipitor] 40 mg PO QHS #30 tablet Metoprolol [Lopressor TAB] 50 mg PO BID #40 tablet Amlodipine Besylate [Norvasc] 5 mg PO DAILY #30 tablet
[2019-06-06] MEDS: HumaLOG SUB-Q SCH (08:00)
[2019-06-06 09:43] VITALS: BP 167/77
[2019-06-06] MEDS: LOPRESSOR PO SCH (09:46)
--- NOTE | 2019-06-06 11:22 | Progress Note ---
Subjective Date of service: 06/06/19 Interval history: should be OK to discharhe I will follow up in the office suspect ptosis is brainstem development not myasthenia gravis Objective - Vital Sign Vital Signs - 12hr 06/06/19 06/06/19 06/06/19 00:53 01:05 05:34 Temperature 97.6 F Pulse Rate 57 L 59 L Respiratory 18 18 Rate Blood Pressure 147/75 168/78 O2 Sat by Pulse 97 98 Oximetry 06/06/19 06/06/19 06/06/19 05:35 07:31 09:32 Temperature 98.3 F 98.2 F Pulse Rate 62 67 Respiratory 18 Rate Blood Pressure 152/70 167/77 O2 Sat by Pulse 100 99 Oximetry 06/06/19 06/06/19 09:46 10:00 Temperature Pulse Rate 67 59 L Respiratory 19 Rate Blood Pressure 167/77 O2 Sat by Pulse 98 Oximetry - Laboratory Findings CBC and BMP: 06/04/19 10:33 Abnormal Lab Findings: Abnormal Labs 06/04/19 06/04/19 06/04/19 10:31 10:33 10:33 RBC 5.59 H Hgb 14.4 H Hct 44.4 H MCH 26 L RDW 12.5 L Lymph % (Auto) 36.4 H [place] % (Auto) 7.7 H POC Glucose 465 H Total Creatine Kinase 22 L CK-MB (CK-2) Rel Index 4.5 H LDL Cholesterol Direct HDL Cholesterol 06/04/19 06/04/19 06/05/19 19:08 20:58 04:29 RBC Hgb Hct MCH RDW Lymph % (Auto) [place] % (Auto) POC Glucose 455 H 386 H Total Creatine Kinase CK-MB (CK-2) Rel Index LDL Cholesterol Direct 167 H HDL Cholesterol 39 L 06/05/19 06/05/19 06/05/19 08:16 11:41 16:19 RBC Hgb Hct MCH RDW Lymph % (Auto) [place] % (Auto) POC Glucose 257 H 253 H 340 H Total Creatine Kinase CK-MB (CK-2) Rel Index LDL Cholesterol Direct HDL Cholesterol 06/05/19 06/06/19 22:13 07:40 RBC Hgb Hct MCH RDW Lymph % (Auto) [place] % (Auto) POC Glucose 335 H 279 H Total Creatine Kinase CK-MB (CK-2) Rel Index LDL Cholesterol Direct HDL Cholesterol
== END 2019-06-06 11:30 | disposition home or self-care (01) | DRG 304 ==
LOC: ED 10:12 → 4A 15:11
PROVIDERS: ADMIT Internal Medicine; ATTEND Hospitalist
DX: I16.0 Hypertensive urgency (principal); I63.9 Cerebral infarction, unspecified; G81.91 Hemiplegia, unspecified affecting right dominant side; E11.9 Type 2 diabetes mellitus without complications; I10 Essential (primary) hypertension; E03.9 Hypothyroidism, unspecified; F32.9 Major depressive disorder, single episode, unspecified; H02.409 Unspecified ptosis of unspecified eyelid; Z82.49 Family history of ischemic heart disease and other diseases of the circulatory system; Z83.3 Family history of diabetes mellitus; Z79.899 Other long term (current) drug therapy; Z72.89 Other problems related to lifestyle
CPT/HCPCS: 36415; 70450; 71045; 80061; 82550; 82553; 82962; 84439; 84443; 84484; 85025; 85610; 85670; 85730; 93005; 93010; 93306; 93880; 96374; G0378; A9270-GY; J0360; J1815

== ENCOUNTER 2021-05-16 16:56 | Inpatient (IN) | payer BC ==
--- NOTE | 2021-05-16 19:49 | Event Note ---
ED Screening Note ED Screening Note: bilateral temporal urbina for 5 days states she has blurred vision which she reports is worse on the left states she feels off balance states she has been having dysuria for two weeks, urinary frequency, odor no fever no n/v/d no abd pain pmhx CVA, DM allergy: none This initial assessment/diagnostic orders/clinical plan/treatment(s) is/are subject to change based on patients health status, clinical progression and re- assessment by fellow clinical providers in the ED. Further treatment and workup at subsequent clinical providers discretion. Patient/guardian urged not to elope from the ED as their condition may be serious if not clinically assessed and managed. Initial orders include: labs, ua, ct head
[2021-05-16 20:11] LABS: Bacteria,Urine 2+ /HPF (Negative); Bilirubin,Urine NEG (Negative); Blood,Urine NEG (Negative); Color,Urine Yellow (Yellow); Mucus,Urine FEW /HPF; Protein,Urine <15 mg/dL mg/dL (Negative)
[2021-05-16 20:25] LABS: Basophils # (Auto) 0.2 K/mm3 (0.0-0.1); Basophils % (Auto) 2.8 % (0.0-1.8); Eosinophils # (Auto) 0.1 K/mm3 (0.0-0.4); Hematocrit 45.7 % (30.3-42.9); Hemoglobin 14.7 gm/dl (10.1-14.3); Lymphocytes # (Auto) 1.8 K/mm3 (1.2-5.4); Lymphocytes % (Auto) 23.7 % (13.4-35.0); Mean Corpuscular HGB Conc 32 % (30-34); Mean Corpuscular Volume 80 fl (79-97); Monocytes # (Auto) 0.4 K/mm3 (0.0-0.8); Monocytes % (Auto) 5.7 % (0.0-7.3); Platelet Count 287 K/mm3 (140-440); Red Blood Count 5.72 M/mm3 (3.65-5.03); Red Cell Distribution Width 13.8 % (13.2-15.2)
[2021-05-16 20:38] LABS: Alanine Aminotransferase 6 units/L (7-56); Albumin 4.2 g/dL (3.9-5); Blood Urea Nitrogen 5 mg/dL (7-17); Hemolysis Index 11
[2021-05-16 20:44] LABS: BUN/Creatinine Ratio 10
[2021-05-16 20:53] LABS: INR 0.97 (0.87-1.13)
[2021-05-16 20:54] LABS: Partial Thromboplastin Time 30.9 Sec. (24.2-36.6)
--- NOTE | 2021-05-16 21:31 | Cat Scan Report ---
CT BRAIN: 05/16/2021 INDICATION / CLINICAL INFORMATION: PEARL, blurred vision left >right, feeling off-balance Lt side facial droop hx cva. COMPARISON: CT brain 06/04/2019 FINDINGS: BRAIN/INTRACRANIAL STRUCTURES: Unenhanced CT images of the brain were obtained. There is fluid hypoat tenuation involving the right occipital lobe, consistent with recent or acute subcortical infarct. Th ere is no evidence of hemorrhage. Chronic ischemic changes are present in the right frontal and parietal cortex and subcortical white m atter, unchanged when compared to the prior exam. There is no evidence of hemorrhage or mass. There are no abnormal extra-axial fluid collections. EXTRACRANIAL STRUCTURES: Unremarkable. IMPRESSION: Recent right occipital infarct. 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 All CT scans at this location are performed using dose reduction to ALARA by means of automated expos ure control. Signer Name: Jd Leos MD Signed: 05/16/2021 9:26 PM Workstation Name: [id number]
--- NOTE | 2021-05-17 06:49 | Emergency Department Report ---
ED Neuro Deficit HPI - General Chief Complaint: Headache Stated Complaint: HEADACHES/BLURRED VISION/UNBALANCED/BURNING URINAT Time Seen by Provider: 05/16/21 19:46 Source: patient Mode of arrival: Ambulatory Limitations: No Limitations - History of Present Illness Initial Comments: Chief complaint: Headache, vision loss, off balance HPI: This is a 50-year-old female with history of TIA, hypertension, insulin- dependent diabetes, dyslipidemia, right-sided ptosis, hyperthyroidism, depression who presents with headache, vision loss, gait imbalance since Friday 6 days ago. Patient noticed persistent headache. bilateral temporal dull headache. Initially Aleve and Excedrin would help the headache. Headache became more persistent. She noticed that her balance was off. She had difficulty walking. She also noticed decreased vision, black spots in the left temporal region. She also was uncomfortable driving. Headache severity currently 5 out of 10. 9 out of 10 at its worst. She has had similar headaches. However this headache is persistent. She has a stressful job. 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 PCP Dr. Jaya Brothers Family medical history includes breast cancer, [place], diabetes mellitus, hyper tension Medications: Amlodipine Losartan NovoLog Farxiga Medication for dyslipidemia -: Gradual, days(s) (6 days ago) Location: ataxia, other (Vision loss) Presenting Symptoms: Present: Blurred/Loss of Vision History of same: No Place: home Severity: moderate Improves With: none On Anticoagulants: No Context: gradual onset Associated Symptoms: headaches, other (Vision loss gait imbalance) Treatments Prior to Arrival: other (Aleve Excedrin) - Related Data Home Medications: Previous Rx's Medication Instructions Recorded Last Taken Type Amlodipine Besylate [Norvasc] 5 mg PO DAILY #30 tablet 06/06/19 Unknown Rx Aspirin EC [Ecotrin] 325 mg PO QDAY #30 tablet. 06/06/19 Unknown Rx AtorvaSTATin [Lipitor] 40 mg PO QHS #30 tablet 06/06/19 Unknown Rx Metoprolol [Lopressor TAB] 50 mg PO BID #40 tablet 06/06/19 Unknown Rx metFORMIN [Glucophage] 500 mg PO BID #40 tablet 06/06/19 Unknown Rx Allergies/Adverse Reactions: Allergies Allergy/AdvReac Type Severity Reaction Status Date / Time No Known Allergies Allergy Verified 05/16/21 17:39 ED Review of Systems ROS: Stated complaint: HEADACHES/BLURRED VISION/UNBALANCED/BURNING URINAT Other details as noted in HPI Comment: All other systems reviewed and negative Constitutional: denies: chills, fever, malaise Eyes: vision change Respiratory: denies: cough, shortness of breath Cardiovascular: denies: chest pain Gastrointestinal: denies: abdominal pain, nausea, vomiting Neurological: headache, abnormal gait ED Past Medical Hx - Past Medical History Previous Medical History?: Yes Hx Hypertension: Yes Hx CVA: Yes (TIA 2014,2018) Hx Congestive Heart Failure: No Hx Diabetes: Yes Hx Asthma: No Hx COPD: No Additional medical history: anemia. hyperthyroid - Surgical History Past Surgical History?: Yes Additional Surgical History: cyst removal from left side of neck, childhood ptosis surgery - Family History Family history: cancer, diabetes, hypertension, vascular disease - Social History Smoking Status: Never Smoker Substance Use Type: None - Medications Home Medications: Home Medications Medication Instructions Recorded Confirmed Last Taken Type Amlodipine Besylate [Norvasc] 5 mg PO DAILY #30 tablet 06/06/19 Unknown Rx Aspirin EC [Ecotrin] 325 mg PO QDAY #30 tablet.dr 06/06/19 Unknown Rx AtorvaSTATin [Lipitor] 40 mg PO QHS #30 tablet 06/06/19 Unknown Rx Metoprolol [Lopressor TAB] 50 mg PO BID #40 tablet 06/06/19 Unknown Rx metFORMIN [Glucophage] 500 mg PO BID #40 tablet 06/06/19 Unknown Rx ED Neuro Physical Exam - General Limitations: No Limitations General appearance: alert, in no apparent distress Suspected Stroke: Yes - Head Head exam: Present: atraumatic, normocephalic - Eye Eye exam: Present: other (Proptosis both eyes eyelid lag right eye) - ENT ENT exam: Present: mucous membranes moist - Neck Neck exam: Present: normal inspection, full ROM - Respiratory Respiratory exam: Present: normal lung sounds bilaterally. Absent: respiratory distress, wheezes, rales, rhonchi - Cardiovascular Cardiovascular Exam: Present: regular rate, normal rhythm, normal heart sounds. Absent: systolic murmur, diastolic murmur, rubs, gallop - GI/Abdominal GI/Abdominal exam: Present: soft, normal bowel sounds. Absent: distended, tenderness, guarding, rebound - Extremities Exam Extremities exam: Present: normal inspection - Neurological Exam Neurological exam: Present: alert, oriented X3 - NIHSS Assessment Interval: Baseline 1a. Level of Consciousness: alert/keenly responsive 1b. LOC Questions: answers both correctly 1c. LOC Commands: performs tasks correctly 2. Best Gaze: normal 3. Visual: complete hemianopia 4. Facial Palsy: normal symmetrical movement 5b. Motor Arm Right: no drift 5a. Motor Arm Left: no drift 6a. Motor Leg Left: no drift 6b. Motor Leg Right: no drift 7. Limb Ataxia: present 2 limbs 8. Sensory: normal 9. Best Language: no aphasia 10. Dysarthria: normal 11. Extinction/Inattention: no abnormality Total Score: 4 Stroke Severity: Minor Stroke - Psychiatric Psychiatric exam: Present: normal affect, normal mood - Skin Skin exam: Present: warm, dry, intact, normal color. Absent: rash ED Course Vital Signs 05/16/21 05/16/21 05/17/21 17:41 17:42 05:32 Temperature 99.3 F 99.3 F Pulse Rate 66 66 Respiratory 18 20 Rate Blood Pressure 180/96 Blood Pressure 180/96 [Right] O2 Sat by Pulse 90 100 100 Oximetry 05/17/21 05/17/21 05/17/21 05:46 06:00 06:16 Temperature Pulse Rate 98 H 85 81 Respiratory 13 9 L 12 Rate Blood Pressure 190/97 196/99 186/100 Blood Pressure [Right] O2 Sat by Pulse 100 99 99 Oximetry 05/17/21 05/17/21 05/17/21 06:30 06:46 07:00 Temperature Pulse Rate 83 95 H 92 H Respiratory 12 14 14 Rate Blood Pressure 179/93 218/119 218/119 Blood Pressure [Right] O2 Sat by Pulse 98 100 99 Oximetry 05/17/21 05/17/21 05/17/21 07:16 07:30 07:46 Temperature Pulse Rate 94 H 82 87 Respiratory 12 11 L 10 L Rate Blood Pressure 196/96 179/116 199/98 Blood Pressure [Right] O2 Sat by Pulse 100 100 99 Oximetry - Lab Data Result diagrams: 05/16/21 20:03 05/16/21 20:03 Lab Results 05/16/21 05/16/21 05/16/21 Range/Units 17:52 20:03 20:03 WBC 7.8 (4.5-11.0) K/mm3 RBC 5.72 H (3.65-5.03) M/mm3 Hgb 14.7 H (10.1-14.3) gm/dl Hct 45.7 H (30.3-42.9) % MCV 80 (79-97) fl MCH 26 L (28-32) pg MCHC 32 (30-34) % RDW 13.8 (13.2-15.2) % Plt Count 287 (140-440) K/mm3 Lymph % (Auto) 23.7 (13.4-35.0) % [place] % (Auto) 5.7 (0.0-7.3) % Eos % (Auto) 1.0 (0.0-4.3) % Baso % (Auto) 2.8 H (0.0-1.8) % Lymph # (Auto) 1.8 (1.2-5.4) K/mm3 [place] # (Auto) 0.4 (0.0-0.8) K/mm3 Eos # (Auto) 0.1 (0.0-0.4) K/mm3 Baso # (Auto) 0.2 H (0.0-0.1) K/mm3 Seg Neutrophils % 66.8 (40.0-70.0) % Seg Neutrophils # 5.2 (1.8-7.7) K/mm3 PT 13.5 (12.2-14.9) Sec. INR 0.97 (0.87-1.13) APTT 30.9 (24.2-36.6) Sec. Sodium (137-145) mmol/L Potassium (3.6-5.0) mmol/L Chloride (98-107) mmol/L Carbon Dioxide (22-30) mmol/L Anion Gap mmol/L BUN (7-17) mg/dL Creatinine (0.6-1.2) mg/dL Estimated GFR ml/min BUN/Creatinine Ratio % Glucose (65-100) mg/dL POC Glucose 188 H (70-105) mg/dL Calcium (8.4-10.2) mg/dL Total Bilirubin (0.1-1.2) mg/dL AST (5-40) units/L ALT (7-56) units/L Alkaline Phosphatase (35-129) units/L Total Protein (6.3-8.2) g/dL Albumin (3.9-5) g/dL Albumin/Globulin Ratio % Urine Color (Yellow) Urine Turbidity (Clear) Urine pH (5.0-7.0) Ur Specific [place] (1.003-1.030) Urine Protein (Negative) mg/dL Urine Glucose (UA) (Negative) mg/dL Urine Ketones (Negative) mg/dL Urine Blood (Negative) Urine Nitrite (Negative) Urine Bilirubin (Negative) Urine Urobilinogen (<2.0) mg/dL Ur Leukocyte Esterase (Negative) Urine WBC (Auto) (0.0-6.0) /HPF Urine RBC (Auto) (0.0-6.0) /HPF U Epithel Cells (Auto) (0-13.0) /HPF Urine Bacteria (Auto) (Negative) /HPF Urine Mucus /HPF 05/16/21 05/16/21 Range/Units 20:03 Unknown WBC (4.5-11.0) K/mm3 RBC (3.65-5.03) M/mm3 Hgb (10.1-14.3) gm/dl Hct (30.3-42.9) % MCV (79-97) fl MCH (28-32) pg MCHC (30-34) % RDW (13.2-15.2) % Plt Count (140-440) K/mm3 Lymph % (Auto) (13.4-35.0) % [place] % (Auto) (0.0-7.3) % Eos % (Auto) (0.0-4.3) % Baso % (Auto) (0.0-1.8) % Lymph # (Auto) (1.2-5.4) K/mm3 [place] # (Auto) (0.0-0.8) K/mm3 Eos # (Auto) (0.0-0.4) K/mm3 Baso # (Auto) (0.0-0.1) K/mm3 Seg Neutrophils % (40.0-70.0) % Seg Neutrophils # (1.8-7.7) K/mm3 PT (12.2-14.9) Sec. INR (0.87-1.13) APTT (24.2-36.6) Sec. Sodium 141 (137-145) mmol/L Potassium 4.1 (3.6-5.0) mmol/L Chloride 102.9 (98-107) mmol/L Carbon Dioxide 27 (22-30) mmol/L Anion Gap 15 mmol/L BUN 5 L (7-17) mg/dL Creatinine 0.5 L (0.6-1.2) mg/dL Estimated GFR > 60 ml/min BUN/Creatinine Ratio 10 % Glucose 219 H (65-100) mg/dL POC Glucose (70-105) mg/dL Calcium 10.0 (8.4-10.2) mg/dL Total Bilirubin 0.60 (0.1-1.2) mg/dL AST 13 (5-40) units/L ALT 6 L (7-56) units/L Alkaline Phosphatase 109 (35-129) units/L Total Protein 8.2 (6.3-8.2) g/dL Albumin 4.2 (3.9-5) g/dL Albumin/Globulin Ratio 1.1 % Urine Color Yellow (Yellow) Urine Turbidity Clear (Clear) Urine pH 6.0 (5.0-7.0) Ur Specific [place] 1.025 (1.003-1.030) Urine Protein <15 mg/dl (Negative) mg/dL Urine Glucose (UA) >=500 (Negative) mg/dL Urine Ketones Tr (Negative) mg/dL Urine Blood Neg (Negative) Urine Nitrite Neg (Negative) Urine Bilirubin Neg (Negative) Urine Urobilinogen 2.0 (<2.0) mg/dL Ur Leukocyte Esterase Neg (Negative) Urine WBC (Auto) 15.0 H (0.0-6.0) /HPF Urine RBC (Auto) 2.0 (0.0-6.0) /HPF U Epithel Cells (Auto) 1.0 (0-13.0) /HPF Urine Bacteria (Auto) 2+ (Negative) /HPF Urine Mucus Few /HPF - EKG Data -: EKG Interpreted by Me EKG shows normal: sinus rhythm, axis Rate: normal Interpretation: nonspecific ST-T wave sienna 05/17/21 07:54 EKG obtained 736 Normal sinus rhythm rate 80 bpm normal axis normal intervals no ST elevation non specific T wave pattern poor R wave progression in the anterior leads - Radiology Data Radiology results: report reviewed [facility] [address] [place] [address] Cat Scan Report Signed Patient: OLVIN LOUIE MR#: [id number] : 1970 Acct:[id number] Age/Sex: 50 / F ADM Date: 05/16/21 Loc: ED Attending Dr: Ordering Physician: VALARIE CARDENAS Date of Service: 05/16/21 Procedure(s): CT head/brain wo con Accession Number(s): [id number] cc: VALARIE CARDENAS CT BRAIN: 05/16/2021 INDICATION / CLINICAL INFORMATION: [place]AR[place], blurred vision left >right, feeling off-balance Lt side facial droop hx cva. COMPARISON: CT brain 06/04/2019 FINDINGS: BRAIN/INTRACRANIAL STRUCTURES: Unenhanced CT images of the brain were obtained. There is fluid hypoattenuation involving the right occipital lobe, consistent with recent or acute subcortical in farct. There is no evidence of hemorrhage. Chronic ischemic changes are present in the right frontal and parietal cortex and subcortical white matter, unchanged when compared to the prior exam. There is no evidence of hemorrhage or mass. There are no abnormal extra-axial fluid collections. EXTRACRANIAL STRUCTURES: Unremarkable. IMPRESSION: Recent right occipital infarct. 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 All CT scans at this location are performed using dose reduction to ALARA by means of automated exposure control. Signer Name: Jd Leos MD Signed: 05/16/2021 9:26 PM Workstation Name: [id number] Transcribed By: PRINCESS Dictated By: Jd Leos MD Electronically Authenticated By: Jd Leos MD Signed Date/Time: 05/16/212125 DD/ 23 TD/TT: - Medical Decision Making Acute occipital Ischemic CVA symptoms headache, vision loss, ataxia confirmed by CT NIH stroke scale 4 Patient given p.o. aspirin after swallow screen completed. Patient also given home medications p.o. losartan, p.o. amlodipine for blood pressure management. Patient is admitted to the hospital service in stable condition. CBC PT PTT, chemistry within normal limits with mildly elevated glucose tPA not indicated due to time of onset 6 days ago. Patient is not a candidate for endovascular thrombectomy considering time of onset. - Differential Diagnosis Intracranial mass, atypical complex migraine, - Thrombolytic Inclusion/Exclusion Thrombolytic Exclusion Criteria: Symptom Onset > 3 Hours Critical care attestation.: If time is entered above; I have spent that time in minutes in the direct care of this critically ill patient, excluding procedure time. ED Disposition Clinical Impression: Acute CVA (cerebrovascular accident) Disposition: 09 ADMITTED INPATIENT Is pt being admited?: Yes Does the pt Need Aspirin: No Condition: Stable
[2021-05-17] MEDS ORDERED: ASPIRIN 325 MG TAB PO ONE (07:00)
[2021-05-17] MEDS ORDERED: LOSARTAN 50 MG TAB PO ONE (07:05)
[2021-05-17] MEDS ORDERED: amLODIPine 5 MG TAB PO ONE (07:05)
[2021-05-17] MEDS ORDERED: PROMETHAZINE 25 MG RECT SUPP PR PRN (10:39)
[2021-05-17] MEDS ORDERED: ONDANSETRON 4 MG/2 ML INJ IV PRN (10:39)
[2021-05-17] MEDS ORDERED: MAGNESIUM HYDROXIDE (MOM) ORAL LIQD UDC PO PRN (10:39)
[2021-05-17] MEDS ORDERED: METOCLOPRAMIDE 10 MG TAB PO PRN (10:39)
--- NOTE | 2021-05-17 10:39 | History and Physical Report ---
History of Present Illness Date of examination: 05/17/21 Date of admission: 05/17/21 Chief complaint: headache and blurred vision History of present illness: 50 year old -Thai female with a history of CVA x twice in the past last in 2019, hypertension, diabetes mellitus and migraine headache presented to ER with recurrent headache over the last 5 days. She describes her headache as pressure in the back of her head right side and is not getting better with OTC medications and different from her regular headache. Patient also complains of associated slight unsteady gait and blurred vision. She presented to ER for evaluation as her symptoms persisted. Patient also noted to have elevated blood pressure in the ER. CT head in the ER also suggestive of subacute right occipital infarct. Telemetry neurology evaluated the patient in the ER with NIH scale of 4 and did not find a candidate for TPA. Patient was admitted for further evaluation and management with stroke protocol. Review of System: Constitutional: no fever, no chills, no weight loss Ears, eyes, nose, mouth and throat: no nasal congestion, no nasal discharge, no sinus pressure, no vision change, no red eye. Neck: No neck pain or rigidity. Cardiovascular: No chest pain, no orthopnea, no palpitations, no leg swelling Respiratory: No shortness of breath, no cough, no congestion, no wheezing Gastrointestinal: no abdominal pain, no nausea, no vomiting Genitourinary : no dysuria, no hematuria Musculoskeletal: no joint swelling or muscle ache Integumentary: no rash, no pruritis Neurological: no parathesias, no numbness, no tingling. +ve for headache Endocrine: no cold or heat intolerance, no polyuria or polydipsia Hematologic/Lymphatic: no easy bruising, no easy bleeding, no gland swelling Allergic/Immunologic: no urticaria, no angioedema. Past History Past Medical History: diabetes, hypertension, other (Migraine) Past Surgical History: Other (Surgery for ptosis) Social history: denies: smoking Family history: diabetes, hypertension Medications and Allergies Allergies Allergy/AdvReac Type Severity Reaction Status Date / Time No Known Allergies Allergy Verified 05/16/21 17:39 Home Medications Medication Instructions Recorded Confirmed Last Taken Type Amlodipine Besylate [Norvasc] 5 mg PO DAILY #30 tablet 06/06/19 05/19/21 05/18/21 18:58 Rx Aspirin EC [Ecotrin] 325 mg PO QDAY #30 tablet. 06/06/19 05/19/21 05/18/21 09:25 Rx AtorvaSTATin [Lipitor] 40 mg PO QHS #30 tablet 06/06/19 05/19/21 05/18/21 22:00 Rx Metoprolol [Lopressor TAB] 50 mg PO BID #40 tablet 06/06/19 05/19/21 05/18/21 22:00 Rx metFORMIN [Glucophage] 500 mg PO BID #40 tablet 06/06/19 05/19/21 05/18/21 16:50 Rx Exam - Physical Exam Narrative exam: GENERAL: well-developed and well-nourished -Thai female lying on bed appeared to be in no discomfort. HEENT: Normocephalic. Atraumatic. No conjunctival congestion or icterus. Patient has moist mucous membranes. NECK: Supple. Trachea midline. CHEST/LUNGS: Clear to auscultated bilaterally, breathing nonlabored. No wheezes crackles or rhonchi. HEART/CARDIOVASCULAR: Regular in rate and rhythm. S1 and S2 positive. ABDOMEN: Abdomen is soft, nontender. Patient has normal bowel sounds. SKIN: There is no rash. Warm and dry. NEURO: No focal motor deficit. Follows command. MUSCULOSKELETAL: No joint effusion or tenderness. EXTRIMITY: No edema, no cyanosis or clubbing. PSYCH: Cooperative. - Constitutional Vitals: Temp Pulse Resp BP Pulse Ox 99.3 F 86 11 L 172/87 100 05/16/21 17:42 05/17/21 09:16 05/17/21 09:16 05/17/21 09:16 05/17/21 09:16 Results - Labs CBC & Chem 7: 05/17/21 14:15 05/19/21 04:12 Labs: Abnormal lab results 05/16/21 05/16/21 05/16/21 Range/Units 17:52 20:03 20:03 RBC 5.72 H (3.65-5.03) M/mm3 Hgb 14.7 H (10.1-14.3) gm/dl Hct 45.7 H (30.3-42.9) % MCH 26 L (28-32) pg Baso % (Auto) 2.8 H (0.0-1.8) % Baso # (Auto) 0.2 H (0.0-0.1) K/mm3 BUN 5 L (7-17) mg/dL Creatinine 0.5 L (0.6-1.2) mg/dL Glucose 219 H (65-100) mg/dL POC Glucose 188 H (70-105) mg/dL ALT 6 L (7-56) units/L Urine WBC (Auto) (0.0-6.0) /HPF 05/16/21 Range/Units Unknown RBC (3.65-5.03) M/mm3 Hgb (10.1-14.3) gm/dl Hct (30.3-42.9) % MCH (28-32) pg Baso % (Auto) (0.0-1.8) % Baso # (Auto) (0.0-0.1) K/mm3 BUN (7-17) mg/dL Creatinine (0.6-1.2) mg/dL Glucose (65-100) mg/dL POC Glucose (70-105) mg/dL ALT (7-56) units/L Urine WBC (Auto) 15.0 H (0.0-6.0) /HPF - Imaging and Cardiology CT Scan - head: report reviewed (subacute right occipital infarct ) Assessment and Plan Possible CVA -- We will admit the patient to remote telemetry --having symptom since last Friday - not a candidate for tPA - We'll place on aspirin and statin, will consult neurology - CT scan of the head obtained in the ER and shows subacute right occipital infarct - We will get MRI of the head, CTA head neck, 2-D echocardiogram - We will also get hemoglobin A1c level and fasting lipid panel - Consult PTOT and speech therapist -Cardiac diet if passes bedside swallow eval, monitor blood glucose - Further management will be based on pending lab results and imaging studies - We'll place on GI prophylaxis to avoid stress ulcer HTN, uncontrolled - will place on BP meds and will adjust as needed Diabetes mellitus type 2 -We will place on SSI and consistent carb diet if passes the swallow eval Migraine headache, CT head without any acute process -Brain MRI is pending, neurology consulted: we will follow recommendation DVT prophylaxis, initiated on Lovenox
--- NOTE | 2021-05-17 13:27 | Consultation ---
History of Present Illness Consult date: 05/17/21 Reason for Consult: headache X5 days , unsteady gait and blurred vision History of present illness: this is 50 ys old femal presented with recurrent headache over the last 5 days discripes it as pressure in the back of her head right side and is not getting better with OTC medications ,she presented to ER for evaluation , according to pt. her headach is different from her usual migraine and this headache is associted with slight unsteady gait and blurred vision. In ER her Ct brain showed right occipital infarct subacute BP 163/80 she was evaluated by tele neurolgy with NIH#4 According to pt. she is with hx of CVA x twice in the past last in 2019 she is with hx of HTN and DM Past History Past Medical History: diabetes, hypertension, migraines Medications and Allergies Allergies Allergy/AdvReac Type Severity Reaction Status Date / Time No Known Allergies Allergy Verified 05/16/21 17:39 Home Medications Medication Instructions Recorded Confirmed Last Taken Type Amlodipine Besylate [Norvasc] 5 mg PO DAILY #30 tablet 06/06/19 Unknown Rx Aspirin EC [Ecotrin] 325 mg PO QDAY #30 tablet. 06/06/19 Unknown Rx AtorvaSTATin [Lipitor] 40 mg PO QHS #30 tablet 06/06/19 Unknown Rx Metoprolol [Lopressor TAB] 50 mg PO BID #40 tablet 06/06/19 Unknown Rx metFORMIN [Glucophage] 500 mg PO BID #40 tablet 06/06/19 Unknown Rx Active Meds: Active Medications Acetaminophen (Acetaminophen 325 Mg Tab) 650 mg PO Q4H PRN PRN Reason: Pain, Mild (1-3) Aspirin (Aspirin 325 Mg Tab) 325 mg PO QDAY [facility] Atorvastatin Calcium (Atorvastatin 40 Mg Tab) 80 mg PO QHS [facility] Bisacodyl (Bisacodyl 10 Mg Rect Supp) 10 mg GA QDAY PRN PRN Reason: Constipation Enoxaparin Sodium (Enoxaparin 40 Mg/0.4 Ml Inj) 40 mg SUB-Q QDAY@2200 LAZARA; Protocol Magnesium Hydroxide (Magnesium Hydroxide (Mom) Oral Liqd Udc) 30 ml PO Q4H PRN PRN Reason: Constipation Metoclopramide HCl (Metoclopramide 10 Mg Tab) 10 mg PO Q6H PRN PRN Reason: Nausea And Vomiting Ondansetron HCl (Ondansetron 4 Mg/2 Ml Inj) 4 mg IV Q8H PRN PRN Reason: Nausea And Vomiting Promethazine HCl (Promethazine 25 Mg Rect Supp) 25 mg GA Q6H PRN PRN Reason: Nausea And Vomiting Sodium Chloride (Sodium Chloride 0.9% 10 Ml Flush Syringe) 10 ml IV PRN PRN PRN Reason: LINE FLUSH Physical Examination - Vital Signs Vital Signs: Vital Signs Temp Pulse Resp BP Pulse Ox 99.3 F 66 18 180/96 90 05/16/21 17:41 05/16/21 17:41 05/16/21 17:41 05/16/21 17:41 05/16/21 17:41 - Constitutional General appearance: comfortable - EENT EENT: Present: PERRL, mucous membranes moist, pupils dilated - Respiratory Respiratory: Present: chest non-tender, lungs clear, rhonchi. 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 Level of Consciousness: alert/keenly responsive - LOC Questions 1b. LOC Questions: answers both correctly - LOC Command 1c. LOC Commands: performs tasks correctly - Best Gaze 2. Best Gaze: normal - Visual 3. Visual: complete hemianopia - Facial Palsy 4. Facial Palsy: normal symmetrical movement - Motor Arm 5a. Motor Arm Left: no drift 5b. Motor Arm Right: no drift - Motor Leg 6a. Motor Leg Left: no drift 6b. Motor Leg Right: no drift - Limb Ataxia 7. Limb Ataxia: absent - Sensory 8. Sensory: mild/moderate sensory loss - Best Language 9. Best Language: no aphasia - Dysarthria 10. Dysarthria: normal - Extinction and Inattention 11. Extinction/Inattention: no abnormality - Scoring Total Score: 3 Stroke Severity: Minor Stroke Results - Laboratory Findings CBC and BMP: 05/16/21 20:03 05/16/21 20:03 Abnormal Lab Findings: Abnormal Labs 05/16/21 05/16/21 05/16/21 17:52 20:03 20:03 RBC 5.72 H Hgb 14.7 H Hct 45.7 H MCH 26 L Baso % (Auto) 2.8 H Baso # (Auto) 0.2 H BUN 5 L Creatinine 0.5 L Glucose 219 H POC Glucose 188 H ALT 6 L Urine WBC (Auto) 05/16/21 Unknown RBC Hgb Hct MCH Baso % (Auto) Baso # (Auto) BUN Creatinine Glucose POC Glucose ALT Urine WBC (Auto) 15.0 H Assessment and Plan # This is 50 ys old femal presented with X 5 days of headache associated with blurred vision -Exam is remarkable for left hemianopsia -Ct brain is with subacute right occipital infarct -CTA brain and neck is pending -ASA 325 mg daily -Lipitor 40 Mg daily -LDL is pending -A1C is pending -Complicated migraine can not be excluded vs recurrent CVA and poorly controlled HTN # Hx of HTN -need better control<150/80 # Hx of DM -A1C is pending # Recurrent CVA -last 2019 -not compling with medication # Hx of Migraine all life -and or chronic daily headache -she is taking OTC medications PLAN 1- CTA brain and neck r/o out thrombus and or large vessles disease -R/O dissection 2- MRI brain 3- Echo cardiogram 4- ASA 325 mg Plus Lipitor 40 mg -A1C and LDL are pending 5- Cardiac monitering 6- Better control BP and BD 7- UDS 8- DT precautions-- she drink average 1-2 beer few times a week 9- PT/ST evaluate 10- SQ heparine -- DVT precaution will follow
[2021-05-17 14:46] LABS: Basophils % (Auto) 0.6 % (0.0-1.8); Eosinophils # (Auto) 0.1 K/mm3 (0.0-0.4); Eosinophils % (Auto) 1.1 % (0.0-4.3); Hematocrit 43.3 % (30.3-42.9); Hemoglobin 14.1 gm/dl (10.1-14.3); Lymphocytes # (Auto) 1.8 K/mm3 (1.2-5.4); Lymphocytes % (Auto) 32.8 % (13.4-35.0); Mean Corpuscular HGB Conc 33 % (30-34); Mean Corpuscular Volume 79 fl (79-97); Monocytes # (Auto) 0.5 K/mm3 (0.0-0.8); Monocytes % (Auto) 9.5 % (0.0-7.3); Platelet Count 233 K/mm3 (140-440); Red Blood Count 5.46 M/mm3 (3.65-5.03); Red Cell Distribution Width 13.8 % (13.2-15.2)
--- NOTE | 2021-05-17 16:07 | Cat Scan Report ---
CT angio neck INDICATION / CLINICAL INFORMATION: 50 years Female; cva 100 ml omni 350 . TECHNIQUE: Thin cut axial images obtained through the head during IV bolus contrast administration. S agittal, coronal, and 3 plane MIP reconstructions performed by the technologist. NASCET type criteria used evaluate stenoses. All CT scans at this location are performed using CT dose reduction for ALAR A by means of automated exposure control. COMPARISON: None available. FINDINGS: CAROTID ARTERIES: The motion and beam hardening degrade the image quality at. However, there appears be mild plaque involving proximal right ICA with mild, 20% stenosis by NASCET criteria. There is no s ignificant stenosis involving the proximal left ICA at. There is milder coastal thickening involving medial distal left common carotid artery without significant stenosis. VERTEBRAL ARTERIES: The vertebral arteries also appear to demonstrate appropriate caliber without sig nificant focal stenosis. ARCH: There is no significant stenosis involving arch of vessels at. ADDITIONAL FINDINGS: Remainder of the surrounding soft tissues are grossly normal. IMPRESSION: There is mild atherosclerotic plaque involving proximal right ICA with mild, 20% stenosis by NASCET c riteria. There is no significant stenosis involving left carotid or bilateral vertebral arteries. The study was dictated emergently once completed at 3:01 PM Central standard time. There appears to t o have been some delay in the completion of this exam. Signer Name: Rhett Fuentes MD Signed: 05/17/2021 4:03 PM Workstation Name: [id number]
--- NOTE | 2021-05-17 16:14 | Cat Scan Report ---
CT angio head INDICATION / CLINICAL INFORMATION: 50 years Female; [id number] omni 350 . TECHNIQUE: Thin cut axial images obtained through the head during IV bolus contrast administration. S agittal, coronal, and 3 plane MIP reconstructions performed by the technologist. NASCET type criteria used evaluate stenoses. Automated exposure control utilized for radiation reduction purposes. COMPARISON: None available. FINDINGS: INTERNAL CAROTID ARTERIES: There is marked narrowing involving the distal right internal carotid rhiannon ry including the clinoid and communicating segments at. There is slightly milder degree of stenosis o f the left ICA including the anterior genu and ophthalmic segment at. The findings are demonstrated a moyamoya type pattern. VERTEBROBASILAR SYSTEM: There is no significant focal stenosis involving the vertebral basilar system . CEREBRAL ARTERIES: There is nonopacification of the P2 segment of the right BROTHEL KEEPER indicative of occlusi on given the evolving infarct on the earlier CT of 05/16/2021. There is notable a focal narrowing invo lving the P2 segment of the BROTHEL KEEPER on the left. There is notable irregularity and narrowing involving the M1 segment of the right MCA and distal bran ches which is of indeterminate age at. More chronic appearing infarcts are seen involving the high ri ght frontal and parietal regions at. There does appear to be component of collateralization within th is region. There is hypoplasia of the A1 segment of the right CARMINE. There is small caliber of the left MCA and distal segments though there is opacification at. The left MCA vessels are better visualized than on the right. The distal A2 segments also demonstrate appropr iate caliber. ANEURYSM: None identified. ADDITIONAL FINDINGS: The dural venous sinuses opacify with contrast. IMPRESSION: There is occlusion of the right BROTHEL KEEPER as described with evolving infarct and edema within the right BROTHEL KEEPER distribution. There is significant disc stenosis involving distal internal carotid arteries bilaterally in a moyamo ya type pattern. There is also significant narrowing and irregularity of the right MCA and insular branches at. Chroni c infarcts are seen involving higher right frontal and parietal regions on the earlier CT. The study was dictated emergently once provided at 3:08 PM Central standard time. There appears to be en some delay in the completion of this study. Signer Name: Rhett Fuentes MD Signed: 05/17/2021 4:10 PM Workstation Name: [id number]
[2021-05-17] MEDS: ACETAMINOPHEN 325 MG TAB PO PRN (18:44)
[2021-05-18] MEDS: ENOXAPARIN 40 MG/0.4 ML INJ SUB-Q SCH ×2 (00:42→21:45)
[2021-05-18] MEDS: HYDROmorphone 1 MG/1 ML INJ IV PRN ×3 (00:42→21:47)
[2021-05-18] MEDS: ACETAMINOPHEN 325 MG TAB PO PRN (09:29)
[2021-05-18] MEDS: ASPIRIN 325 MG TAB PO SCH (09:29)
--- NOTE | 2021-05-18 10:02 | Electrocardiograph Report ---
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
[2021-05-18] MEDS: METOPROLOL TARTRATE 50 MG TAB PO SCH ×2 (10:50→21:44)
[2021-05-18] MEDS: metFORMIN 500 MG TAB PO SCH ×2 (10:50→16:49)
--- NOTE | 2021-05-18 11:59 | Progress Note ---
Assessment and Plan # This is 50 ys old femal presented with X 5 days of headache associated with blurred vision -Exam is remarkable for left hemianopsia -Ct brain is with subacute right occipital infarct -CTA brain and neck showed right ICA <20 stenosis -ASA 325 mg daily -Lipitor 40 Mg daily -LDL is pending -A1C is pending -Complicated migraine can not be excluded vs recurrent CVA and poorly controlled HTN - MRI brain is pending -Echo is pending # Hx of HTN -need better control<150/80 # Hx of DM -A1C is pending # Recurrent CVA -last 2019 -not compling with medication # Hx of Migraine all life -and or chronic daily headache -she is taking OTC medications PLAN 1- CTA brain and neck unremarkable no thrombus no dissection 2- MRI brain is pending 3- Echo cardiogram is pending 4- ASA 325 mg Plus Lipitor 40 mg -A1C and LDL are pending 5- Cardiac monitering 6- Better control BP and BD 7- UDS not done 8- DT precautions-- she drink average 1-2 beer few times a week 9- PT/ST evaluate 10- SQ heparine -- DVT precaution 11-Add amitriptylin 25 mg qhs for migraine prophylactic will follow Subjective Date of service: 05/18/21 Principal diagnosis: headache and visual impairment Interval history: headache intermittent , no weakness MRI still not done CTA is unremarkable Objective - Vital Sign Vital Signs - 12hr 05/18/21 05/18/21 05/18/21 00:01 00:15 00:31 Pulse Rate 76 83 73 Respiratory 11 L 14 9 L Rate Blood Pressure 169/85 180/89 168/88 O2 Sat by Pulse 98 98 100 Oximetry 05/18/21 05/18/21 05/18/21 00:45 01:01 01:15 Pulse Rate 94 H 84 73 Respiratory 17 11 L 9 L Rate Blood Pressure 169/82 184/92 186/88 O2 Sat by Pulse 100 99 99 Oximetry 05/18/21 05/18/21 05/18/21 01:31 01:45 02:01 Pulse Rate 72 75 73 Respiratory 10 L 11 L 12 Rate Blood Pressure 168/81 164/76 150/76 O2 Sat by Pulse 97 97 97 Oximetry 05/18/21 05/18/21 05/18/21 02:15 02:31 02:45 Pulse Rate 69 83 71 Respiratory 19 11 L 14 Rate Blood Pressure 150/67 162/81 147/76 O2 Sat by Pulse 98 99 99 Oximetry 05/18/21 05/18/21 05/18/21 03:01 03:15 03:31 Pulse Rate 69 68 70 Respiratory 12 10 L 11 L Rate Blood Pressure 152/79 152/112 148/72 O2 Sat by Pulse 98 98 98 Oximetry 05/18/21 05/18/21 05/18/21 03:45 04:01 04:15 Pulse Rate 70 69 65 Respiratory 9 L 9 L 17 Rate Blood Pressure 135/74 145/73 153/79 O2 Sat by Pulse 98 98 98 Oximetry 05/18/21 05/18/21 05/18/21 04:31 04:45 05:01 Pulse Rate 69 65 97 H Respiratory 11 L 10 L 10 L Rate Blood Pressure 159/86 151/77 149/82 O2 Sat by Pulse 100 99 99 Oximetry 05/18/21 05/18/21 05/18/21 05:15 05:31 05:45 Pulse Rate 66 69 74 Respiratory 9 L 14 15 Rate Blood Pressure 148/73 152/74 160/74 O2 Sat by Pulse 98 98 98 Oximetry 05/18/21 05/18/21 05/18/21 06:01 06:15 06:31 Pulse Rate 71 71 71 Respiratory 19 15 11 L Rate Blood Pressure 144/63 145/70 132/78 O2 Sat by Pulse 98 98 98 Oximetry 05/18/21 05/18/21 05/18/21 06:45 07:01 07:15 Pulse Rate 71 67 65 Respiratory 11 L 10 L 11 L Rate Blood Pressure 154/75 143/74 152/63 O2 Sat by Pulse 98 99 97 Oximetry 05/18/21 05/18/21 05/18/21 07:31 07:32 07:45 Pulse Rate 93 H 85 Respiratory 15 13 Rate Blood Pressure 166/86 172/99 O2 Sat by Pulse 98 97 99 Oximetry 05/18/21 05/18/21 05/18/21 08:01 08:15 08:31 Pulse Rate 85 82 83 Respiratory 10 L 10 L 13 Rate Blood Pressure 164/87 163/85 170/79 O2 Sat by Pulse 98 97 98 Oximetry 05/18/21 05/18/21 05/18/21 08:45 09:01 09:15 Pulse Rate 97 H 104 H Respiratory 25 H 29 H 31 H Rate Blood Pressure 192/98 181/98 178/122 O2 Sat by Pulse 96 99 99 Oximetry 05/18/21 05/18/21 05/18/21 09:31 09:45 10:00 Pulse Rate 79 126 H 99 H Respiratory 23 23 14 Rate Blood Pressure 203/86 197/100 197/100 O2 Sat by Pulse 99 100 100 Oximetry 05/18/21 05/18/21 05/18/21 10:15 10:31 10:45 Pulse Rate 107 H 86 74 Respiratory 15 17 10 L Rate Blood Pressure 191/92 191/92 161/84 O2 Sat by Pulse 100 98 98 Oximetry 05/18/21 10:50 Pulse Rate 74 Respiratory Rate Blood Pressure 161/84 O2 Sat by Pulse Oximetry - General Apperance Constitutional: comfortable - EENT EENT: PERRL, mucous membranes moist - Respiratory Respiratory: lungs clear, normal breath sounds, rhonchi - Cardiovascular Cardiovascular: regular rate, normal S1, normal S2 Extremities: no peripheral edema bilat, no clubbing, cyanosis - Gastrointestinal Gastrointestinal: normoactive bowel sounds - Integumentary Integumentary: normal - Neurologic Cranial nerve examination: PERRL, EOMI, VFF, other (left hemianopsia, slight left facial droop ) Detailed motor examination: grossly full strength in - Laboratory Findings CBC and BMP: 05/17/21 14:15 05/16/21 20:03 Abnormal Lab Findings: Abnormal Labs 05/16/21 05/16/21 05/16/21 17:52 20:03 20:03 RBC 5.72 H Hgb 14.7 H Hct 45.7 H MCH 26 L [place] % (Auto) Baso % (Auto) 2.8 H Baso # (Auto) 0.2 H BUN 5 L Creatinine 0.5 L Glucose 219 H POC Glucose 188 H ALT 6 L Urine WBC (Auto) 05/16/21 05/17/21 05/18/21 Unknown 14:15 09:15 RBC 5.46 H Hgb Hct 43.3 H MCH 26 L [place] % (Auto) 9.5 H Baso % (Auto) Baso # (Auto) BUN Creatinine Glucose POC Glucose 330 H ALT Urine WBC (Auto) 15.0 H
--- NOTE | 2021-05-18 13:17 | Magnetic Resonance Report ---
MRI BRAIN WITHOUT CONTRAST INDICATION / CLINICAL INFORMATION: possible cva, LT SIDED WEAKNESS, HEADACHES. TECHNIQUE: Multiplanar, multisequence MR images of the brain were obtained. COMPARISON: Head CT on 05/16/2021 FINDINGS: BRAIN / INTRACRANIAL CONTENTS: There is an acute infarct in the right posterior temporal lobe and rig ht occipital lobe and the right MANAGER CARDIAC territory. There is no hemorrhage or adverse mass effect. Chronic infarct in the right MCA territory appear similar to prior. Ventricular and cisternal size remains o therwise normal for age. CRANIOCERVICAL JUNCTION: No significant abnormality. VASCULAR FLOW-VOIDS: No significant abnormality. ORBITS: No significant abnormality of visualized orbits. SINUSES / MASTOIDS: No significant abnormality of visualized sinuses and mastoid air cells. ADDITIONAL FINDINGS: None. IMPRESSION: 1. Acute infarct in the right MANAGER CARDIAC territory without hemorrhage or adverse mass effect. Signer Name: Ramirez Hayward MD Signed: 05/18/2021 1:13 PM Workstation Name: [id number]
[2021-05-18 16:52] LABS: Chol/HDL Ratio 4.79 %
--- NOTE | 2021-05-18 17:04 | Progress Note ---
Assessment and Plan Possible CVA -- We will admit the patient to remote telemetry --having symptom since last Friday - not a candidate for tPA -Continue aspirin and statin - CT scan of the head obtained in the ER and shows subacute right occipital infarct -Brain MRI showed right GYNECOLOGICAL ASSISTANT territory acute infarct -Ordered hemoglobin A1c level and fasting lipid panel -Cardiac diet HTN, uncontrolled - will place on BP meds and will adjust as needed Migraine headache, placed on amitriptyline Diabetes mellitus type 2 -We will place on SSI and consistent carb diet -We will check A1c level DVT prophylaxis, initiated on Lovenox Daily clinical course: 05/18/21; patient continued to complains of posterior headache. Placed on amitriptyline. MRI brain suggestive of right GYNECOLOGICAL ASSISTANT territory acute infarct. Continue to monitor blood pressure and adjust medications to keep SBP less than 160. Will monitor overnight, if continues to complains of headache will repeat another CT head tomorrow. Subjective Date of service: 05/18/21 Principal diagnosis: headache and visual impairment Interval history: Patient seen and examined. Medical records and medication list reviewed. No acute event overnight noted by the RN. Patient denies any chest pain or difficulty breathing. Patient is tolerating diet. Continue to complains of persistent headache MRI suggestive of acute CVA Discussed plan of care at bedside with patient. Objective - Exam Narrative Exam: GENERAL: well-developed and well-nourished -[place] female lying on bed appeared to be in no discomfort. HEENT: Normocephalic. Atraumatic. No conjunctival congestion or icterus. Patient has moist mucous membranes. NECK: Supple. Trachea midline. CHEST/LUNGS: Clear to auscultated bilaterally, breathing nonlabored. No wheezes crackles or rhonchi. HEART/CARDIOVASCULAR: Regular in rate and rhythm. S1 and S2 positive. ABDOMEN: Abdomen is soft, nontender. Patient has normal bowel sounds. SKIN: There is no rash. Warm and dry. NEURO: No focal motor deficit. Follows command. MUSCULOSKELETAL: No joint effusion or tenderness. EXTRIMITY: No edema, no cyanosis or clubbing. PSYCH: Cooperative. - Constitutional Vitals: Vital Signs - 12hr 05/18/21 05/18/21 05/18/21 05:15 05:31 05:45 Pulse Rate 66 69 74 Respiratory 9 L 14 15 Rate Blood Pressure 148/73 152/74 160/74 O2 Sat by Pulse 98 98 98 Oximetry 05/18/21 05/18/21 05/18/21 06:01 06:15 06:31 Pulse Rate 71 71 71 Respiratory 19 15 11 L Rate Blood Pressure 144/63 145/70 132/78 O2 Sat by Pulse 98 98 98 Oximetry 05/18/21 05/18/21 05/18/21 06:45 07:01 07:15 Pulse Rate 71 67 65 Respiratory 11 L 10 L 11 L Rate Blood Pressure 154/75 143/74 152/63 O2 Sat by Pulse 98 99 97 Oximetry 05/18/21 05/18/21 05/18/21 07:31 07:32 07:45 Pulse Rate 93 H 85 Respiratory 15 13 Rate Blood Pressure 166/86 172/99 O2 Sat by Pulse 98 97 99 Oximetry 05/18/21 05/18/21 05/18/21 08:01 08:15 08:31 Pulse Rate 85 82 83 Respiratory 10 L 10 L 13 Rate Blood Pressure 164/87 163/85 170/79 O2 Sat by Pulse 98 97 98 Oximetry 05/18/21 05/18/21 05/18/21 08:45 09:01 09:15 Pulse Rate 97 H 104 H Respiratory 25 H 29 H 31 H Rate Blood Pressure 192/98 181/98 178/122 O2 Sat by Pulse 96 99 99 Oximetry 05/18/21 05/18/21 05/18/21 09:31 09:45 10:00 Pulse Rate 79 126 H 99 H Respiratory 23 23 14 Rate Blood Pressure 203/86 197/100 197/100 O2 Sat by Pulse 99 100 100 Oximetry 05/18/21 05/18/21 05/18/21 10:15 10:31 10:45 Pulse Rate 107 H 86 74 Respiratory 15 17 10 L Rate Blood Pressure 191/92 191/92 161/84 O2 Sat by Pulse 100 98 98 Oximetry 05/18/21 05/18/21 05/18/21 10:50 11:01 11:15 Pulse Rate 74 73 65 Respiratory 11 L 10 L Rate Blood Pressure 161/84 174/84 164/84 O2 Sat by Pulse 98 98 Oximetry 05/18/21 05/18/21 05/18/21 11:30 11:46 12:00 Pulse Rate 62 64 63 Respiratory 11 L 11 L 16 Rate Blood Pressure 164/84 169/83 162/78 O2 Sat by Pulse 97 97 98 Oximetry 05/18/21 05/18/21 05/18/21 12:16 12:30 13:18 Pulse Rate 63 69 Respiratory 20 14 Rate Blood Pressure 157/75 157/75 187/92 O2 Sat by Pulse 98 99 100 Oximetry 05/18/21 05/18/21 05/18/21 13:30 13:46 14:00 Pulse Rate 85 86 Respiratory 18 21 12 Rate Blood Pressure 168/85 187/92 162/84 O2 Sat by Pulse 98 99 98 Oximetry 05/18/21 05/18/21 05/18/21 14:16 14:30 14:46 Pulse Rate 83 80 72 Respiratory 14 35 H 11 L Rate Blood Pressure 162/84 160/92 160/92 O2 Sat by Pulse 99 100 98 Oximetry 05/18/21 05/18/21 05/18/21 15:00 15:16 15:30 Pulse Rate 74 71 73 Respiratory 13 11 L 21 Rate Blood Pressure 135/59 160/92 144/68 O2 Sat by Pulse 99 99 98 Oximetry 05/18/21 05/18/21 05/18/21 15:46 16:00 16:16 Pulse Rate 86 70 72 Respiratory 16 27 H 17 Rate Blood Pressure 135/59 148/77 144/68 O2 Sat by Pulse 98 98 98 Oximetry 05/18/21 05/18/21 16:30 16:46 Pulse Rate 81 Respiratory 37 H 16 Rate Blood Pressure 151/72 151/72 O2 Sat by Pulse 99 99 Oximetry - Labs CBC & Chem 7: 05/17/21 14:15 05/19/21 04:12 Labs: Abnormal lab results 05/18/21 05/18/21 05/18/21 Range/Units 09:15 13:22 15:23 POC Glucose 330 H 212 H (70-105) mg/dL Triglycerides 191 H (2-149) mg/dL HDL Cholesterol 34 L (40-59) mg/dL 05/18/21 Range/Units 16:37 POC Glucose 309 H (70-105) mg/dL Triglycerides (2-149) mg/dL HDL Cholesterol (40-59) mg/dL
[2021-05-18] MEDS: amLODIPine 10 MG TAB PO SCH (18:58)
[2021-05-18] MEDS: levoFLOXacin 500 MG TAB PO SCH (20:30)
[2021-05-18] MEDS ORDERED: AMITRIPTYLINE 25 MG TAB PO SCH (22:00)
[2021-05-19 07:05] LABS: Blood Urea Nitrogen 8 mg/dL (7-17); Calcium 8.8 mg/dL (8.4-10.2); Hemolysis Index 0
[2021-05-19 07:22] LABS: BUN/Creatinine Ratio 16
[2021-05-19] MEDS: levoFLOXacin 500 MG TAB PO SCH (09:56)
[2021-05-19] MEDS: metFORMIN 500 MG TAB PO SCH ×2 (09:56→17:38)
[2021-05-19] MEDS: ASPIRIN 325 MG TAB PO SCH (09:57)
[2021-05-19] MEDS: METOPROLOL TARTRATE 50 MG TAB PO SCH (09:57)
[2021-05-19] MEDS: amLODIPine 10 MG TAB PO SCH (09:57)
--- NOTE | 2021-05-19 10:19 | Progress Note ---
Assessment and Plan # This is 50 ys old femal presented with X 5 days of headache associated with blurred vision -Exam is remarkable for left hemianopsia -Ct brain is with subacute right occipital infarct -CTA brain and neck showed right ICA <20 stenosis -ASA 325 mg daily -Lipitor 40 Mg daily -LDL is # 109 -A1C is #11.2 -Complicated migraine can not be excluded vs recurrent CVA and poorly controlled HTN - MRI brain is consistent with acute right occipital infarct and old right MCA infarct -Echo is pending # Hx of HTN -need better control<150/80 # Hx of DM -A1C is #11.2 # Recurrent CVA -last 2019 -not compling with medication # Hx of Migraine all life -and or chronic daily headache -she is taking OTC medications PLAN 1- Echo cardiogram is pending 2- ASA 325 mg Plus Lipitor 40 mg ++ A1C and LDL are pending 3- Cardiac monitering 4- Better control BP and BD 5- DT precautions-- she drink average 1-2 beer few times a week 6- PT/ST evaluate 7- SQ heparine -- DVT precaution 8-Add amitriptylin 25 mg qhs for migraine prophylactic 9- Treat underlying infection UA positive K.P will sign off Subjective Date of service: 05/19/21 Principal diagnosis: headache and visual impairment Interval history: headache improved ,slpt well last night no side effect of medication , no weakness MRI brain is consistent with right occipital infarct CTA is unremarkable UA positive culture klepsiela echo is pending Objective - Vital Sign Vital Signs - 12hr 05/18/21 05/18/21 05/18/21 22:16 22:17 22:30 Temperature Pulse Rate 83 69 Respiratory 12 18 11 L Rate Respiratory Rate [Head] Blood Pressure 189/98 211/101 O2 Sat by Pulse 100 96 Oximetry 05/18/21 05/18/21 05/18/21 22:46 23:00 23:16 Temperature Pulse Rate 67 67 69 Respiratory 9 L 10 L 10 L Rate Respiratory Rate [Head] Blood Pressure 167/80 172/79 167/80 O2 Sat by Pulse 96 95 96 Oximetry 05/18/21 05/19/21 05/19/21 23:30 00:20 01:15 Temperature 97.7 F Pulse Rate 78 69 Respiratory 16 16 Rate Respiratory 17 Rate [Head] Blood Pressure 153/73 175/86 O2 Sat by Pulse 96 97 98 Oximetry 05/19/21 05/19/21 05/19/21 03:23 04:00 09:44 Temperature 97.9 F 98.3 F Pulse Rate 65 62 77 Respiratory 17 20 Rate Respiratory Rate [Head] Blood Pressure 160/74 161/78 O2 Sat by Pulse 100 98 Oximetry - General Apperance Constitutional: comfortable - EENT EENT: PERRL, mucous membranes moist - Respiratory Respiratory: lungs clear, normal breath sounds, rhonchi - Cardiovascular Cardiovascular: normal S1, normal S2 Extremities: no peripheral edema bilat, no clubbing, cyanosis - Gastrointestinal Gastrointestinal: normoactive bowel sounds - Integumentary Integumentary: normal - Neurologic Cranial nerve examination: PERRL, EOMI, other (left hemianopsia) Detailed motor examination: grossly full strength in - Laboratory Findings CBC and BMP: 05/17/21 14:15 05/19/21 04:12 Abnormal Lab Findings: Abnormal Labs 05/16/21 05/16/21 05/16/21 17:52 20:03 20:03 RBC 5.72 H Hgb 14.7 H Hct 45.7 H MCH 26 L Mcdonough % (Auto) Baso % (Auto) 2.8 H Baso # (Auto) 0.2 H Sodium BUN 5 L Creatinine 0.5 L Glucose 219 H POC Glucose 188 H Hemoglobin A1c ALT 6 L Triglycerides HDL Cholesterol TSH Urine WBC (Auto) 05/16/21 05/17/21 05/18/21 Unknown 14:15 09:15 RBC 5.46 H Hgb Hct 43.3 H MCH 26 L Mcdonough % (Auto) 9.5 H Baso % (Auto) Baso # (Auto) Sodium BUN Creatinine Glucose POC Glucose 330 H Hemoglobin A1c ALT Triglycerides HDL Cholesterol TSH Urine WBC (Auto) 15.0 H 05/18/21 05/18/21 05/18/21 13:22 14:15 15:23 RBC Hgb Hct MCH Mcdonough % (Auto) Baso % (Auto) Baso # (Auto) Sodium BUN Creatinine Glucose POC Glucose 212 H Hemoglobin A1c 11.2 H ALT Triglycerides 191 H HDL Cholesterol 34 L TSH Urine WBC (Auto) 05/18/21 05/18/21 05/19/21 15:23 16:37 04:12 RBC Hgb Hct MCH Mcdonough % (Auto) Baso % (Auto) Baso # (Auto) Sodium 133 L D BUN Creatinine 0.5 L Glucose 271 H POC Glucose 309 H Hemoglobin A1c ALT Triglycerides HDL Cholesterol TSH 0.152 L Urine WBC (Auto) 05/19/21 09:48 RBC Hgb Hct MCH Mcdonough % (Auto) Baso % (Auto) Baso # (Auto) Sodium BUN Creatinine Glucose POC Glucose 286 H Hemoglobin A1c ALT Triglycerides HDL Cholesterol TSH Urine WBC (Auto)
--- NOTE | 2021-05-19 12:46 | Cat Scan Report ---
CT HEAD WITHOUT CONTRAST INDICATION / CLINICAL INFORMATION: reoccurring headache . TECHNIQUE: All CT scans at this location are performed using CT dose reduction for ALARA by means of automated exposure control. COMPARISON: 05/16/2021 FINDINGS: HEMORRHAGE: None. EXTRA-AXIAL SPACES: Normal in size and morphology for the patient's age. VENTRICULAR SYSTEM: Normal in size and morphology for the patient's age. CEREBRAL PARENCHYMA: Subacute/early chronic infarction of the right occipital lobe is again demonstra chaparrita. No evidence of hemorrhagic conversion. Encephalomalacia of the right frontal lobe is unchanged. No acute focal attenuation abnormalities are identified. MIDLINE SHIFT / HERNIATION: None. CEREBELLUM / BRAINSTEM: No significant abnormality. ORBITS: Normal as visualized. SOFT TISSUES: No significant abnormality. SKULL: No significant abnormality. PARANASAL SINUSES / MASTOID AIR CELLS: Normal as visualized. ADDITIONAL FINDINGS: None. IMPRESSION: 1. No acute intracranial abnormality. No significant interval change. Signer Name: Gabe Aponte MD Signed: 05/19/2021 12:42 PM Workstation Name: [id number]
[2021-05-19] MEDS: INSULIN REGULAR, HUMAN 100 UNITS/1 ML SUB-Q SCH ×2 (13:15→18:00)
[2021-05-19] MEDS: ACETAMINOPHEN 325 MG TAB PO PRN (14:21)
--- NOTE | 2021-05-19 15:43 | Discharge Summary ---
Providers - Providers Date of Admission: 05/17/21 17:05 Date of discharge: 05/19/21 Attending physician: DESTINY VELAZQUEZ 05/17/21 Consult to Physician [CONS] Routine Comment: Consulting Provider: JOSÉ MANUEL LIM Physician Instructions: Reason For Exam: cva 05/17/21 10:44 Consult to Case Management [CONS] Routine Services Needed at Discharge: Other Notified:: case management Consult to Dietitian/Nutrition [CONS] Routine Physician Instructions: Reason For Exam: Reason for Consult: Nutrition Recommendations Reason for Consult: Diet education Occupational Therapy Evaluate and Treat [CONS] Routine Comment: Reason For Exam: Neuro deficits Physical Therapy Evaluation and Treat [CONS] Routine Comment: Reason For Exam: Neuro deficits 05/17/21 17:08 Speech Therapy Evaluation and Treat [CONS] Routine Reason For Exam: aspiration Primary care physician: JAVA MANAGER Hospitalization Condition: Stable Final Discharge Diagnosis (Prints w/discharge instructions): --Acute CVA with a right [employer] territory infarct. --Hypertension, uncontrolled. --Migraine headache. --Diabetes mellitus type 2 with A1c 11 Time spent for discharge: 34 minutes Core Measure Documentation - Palliative Care Palliative Care/ Comfort Measures: Not Applicable - Core Measures Any of the following diagnoses?: none Exam - Physical Exam Narrative exam: GENERAL: well-developed and well-nourished -[place] female lying on bed appeared to be in no discomfort. HEENT: Normocephalic. Atraumatic. No conjunctival congestion or icterus. Patient has moist mucous membranes. NECK: Supple. Trachea midline. CHEST/LUNGS: Clear to auscultated bilaterally, breathing nonlabored. No wheezes crackles or rhonchi. HEART/CARDIOVASCULAR: Regular in rate and rhythm. S1 and S2 positive. ABDOMEN: Abdomen is soft, nontender. Patient has normal bowel sounds. SKIN: There is no rash. Warm and dry. NEURO: No focal motor deficit. Follows command. MUSCULOSKELETAL: No joint effusion or tenderness. EXTRIMITY: No edema, no cyanosis or clubbing. PSYCH: Cooperative. - Constitutional Vitals: Temp Pulse Resp BP Pulse Ox 98.3 F 77 20 161/78 98 05/19/21 09:44 05/19/21 09:44 05/19/21 09:44 05/19/21 09:44 05/19/21 09:44 Plan Activity: advance as tolerated Weight Bearing Status: Weight Bear as Tolerated Diet: low fat, low salt, diabetic Special Instructions: record daily BP diary, record blood sugar diary Follow up with: PRIMARY MD YOVANNY [Primary Care Provider] - 7 Days JD LUJAN MD [Staff Physician] - 7 Days Prescriptions: Amitriptyline [Elavil] 25 mg PO QHS #30 tablet AtorvaSTATin [Lipitor] 80 mg PO QHS #30 tablet amLODIPine 10 mg PO QDAY #30 tablet Aspirin 325 mg PO QDAY #30 tablet Losartan [Cozaar] 100 mg PO QDAY #30 tablet Insulin Regular, Human [HumuLIN R] 0 units SUB-Q ACHS 30 Days levoFLOXacin [Levaquin TAB] 500 mg PO Q24HR #3 tablet Insulin NPH, Human [NovoLIN N] 10 unit SUB-Q BIDDIAB 30 Days
[2021-05-19] MEDS ORDERED: hydrALAZINE 25 MG TAB PO SCH (16:00)
[2021-05-19] MEDS ORDERED: LOSARTAN 50 MG TAB PO SCH (17:00)
[2021-05-19] MEDS ORDERED: INSULIN NPH, HUMAN 100 UNIT/1 ML SUB-Q SCH (17:00)
[2021-05-19 17:39] VITALS: BP 168/84
[2021-05-19] MEDS ORDERED: METOPROLOL TARTRATE 25 MG TAB PO SCH (22:00)
== END 2021-05-19 20:00 | disposition home or self-care (01) | DRG 66 ==
LOC: ED 16:56 → 4A 05-17 07:31 → OBSVTOIN 05-17 17:05 → 4A 05-18 22:28
PROVIDERS: ADMIT Internal Medicine; ATTEND Internal Medicine
DX: I63.9 Cerebral infarction, unspecified (principal); I10 Essential (primary) hypertension; E11.9 Type 2 diabetes mellitus without complications; E78.5 Hyperlipidemia, unspecified; Z79.4 Long term (current) use of insulin; E05.90 Thyrotoxicosis, unspecified without thyrotoxic crisis or storm; F32.9 Major depressive disorder, single episode, unspecified; Z82.49 Family history of ischemic heart disease and other diseases of the circulatory system; Z83.3 Family history of diabetes mellitus; R29.704 NIHSS score 4; G43.909 Migraine, unspecified, not intractable, without status migrainosus; R27.0 Ataxia, unspecified; H53.8 Other visual disturbances; B96.1 Klebsiella pneumoniae [K. pneumoniae] as the cause of diseases classified elsewhere
CPT/HCPCS: 36415; 70450; 70496; 70498; 70551; 80048; 80053; 80061; 81001; 82962; 83036; 84439; 84443; 85025; 85610; 85730; 87076; 87086; 87186; 93005; 93306; G0378; A9270-GY; J1170; J1650; J1815; J2405; Q9967